=== PATIENT | male | born 1985 | race Caucasian/White ===

== ENCOUNTER 2022-01-28 15:26 | Emergency (ER) | payer OTHER, SELFPAY ==
--- NOTE | ~2022-01-28 | XR_ITS ---
EXAMINATION: XR CHEST CLINICAL INFORMATION: Chest pain COMPARISON: None TECHNIQUE: 2 views of the chest were obtained. FINDINGS: Normal symmetric lung volumes. No parenchymal consolidation. No pleural effusion. No pneumothorax. Cardiomediastinal silhouette and pulmonary vascularity are within normal limits. No acute osseous abnormalities. XR/XR chest 2V IMPRESSION: No acute findings
--- NOTE | 2022-01-28 15:32 | ECG_ITS ---
Test Reason : chest pain Blood Pressure : / mmHG Vent. Rate : 081 BPM Atrial Rate : 081 BPM P-R Int : 130 ms QRS Dur : 078 ms QT Int : 352 ms P-R-T Axes : 021 070 035 degrees QTc Int : 408 ms Normal sinus rhythm Nonspecific ST abnormality Abnormal ECG No previous ECGs available Referred By: Generic ED Physician Electronically Signed By:MED FREEDMAN MD
[2022-01-28 15:33] VITALS: BP 190/106; PULSE 90; RESP 16; TEMP 36.4; O2SAT 99; BMI 30.7
[2022-01-28 16:05] LABS: MANUAL DIFF FLAG NO
[2022-01-28 16:12] VITALS: BP 175/109; PULSE 88; RESP 18; O2SAT 99
[2022-01-28 16:14] LABS: INTERNATIONAL NORM RATIO 1.1 (0.9-1.1); Prothrombin Time 12.2 SEC (10.0-13.1)
[2022-01-28 16:18] LABS: D Dimer High Sensitivity < 150 NG/ML
[2022-01-28 16:20] LABS: Basophils Absolute Auto 0.1 X10*3/uL (0.0-0.2); Basophils Percent Auto 0.7 % (0-2); Eosinophils Absolute Auto 0.2 X10*3/uL (0.0-0.4); Eosinophils Percent Auto 2.1 % (0-4); Hematocrit 45.1 % (42.0-52.0); Hemoglobin 16.4 g/dl (14.0-18.0); Imm Gran Abs Auto 0.05 X10*3/uL (0.00-0.03); Imm Gran Pct Auto 0.6 % (0.0-0.4); Lymphocytes Absolute Auto 2.5 X10*3/uL (1.2-4.9); Lymphocytes Percent Auto 28.7 % (20-40); Mean Corpuscular HGB Conc 36.4 g/dl (31.0-36.0); Mean Corpuscular Hemoglobin 32.5 pg (27.0-33.0); Mean Corpuscular Volume 89.3 fL (80.0-98.0); Mean Platelet Volume 10.5 fL (9.4-12.4); Monocytes Absolute Auto 0.6 X10*3/uL (0.1-1.2); Monocytes Percent Auto 6.5 % (2-11); Neutrophils Absolute Auto 5.3 x10*3/uL (2.0-8.3); Neutrophils Percent Auto 61.4 % (45-73); Platelet Count 201 X10*3/uL (160-400); Red Blood Count 5.05 X10*6/uL (4.60-5.80); Red Cell Distribution Width 12.2 % (11.0-16.0); White Blood Count 8.6 X10*3/uL (4.8-10.8)
[2022-01-28 16:29] LABS: Troponin-I High Sensitivity < 3.5 ng/L (<3.5-35.0)
[2022-01-28 16:30] LABS: Alanine Aminotransferase 82 U/L (0-40); Albumin Level 4.8 g/dL (3.5-5.0); Alkaline Phosphatase 97 U/L (39-117); Anion Gap 16 (12-20); Aspartate Amino Transferase 58 U/L (5-37); Blood Urea Nitrogen 14 mg/dL (9-16); Calcium 10.1 mg/dL (8.4-10.2); Carbon Dioxide 22 mmol/L (22-29); Chloride 107 mmol/L (96-108); Creatinine Clr Calc Pharmacy 112.3; Estimated Glomerular Filt Rate > 60; Glucose Random 106 mg/dL (60-115); Potassium 4.4 mmol/L (3.3-5.1); Sodium 141 mmol/L (135-145); Total Protein 9.1 g/dL (6.5-8.0)
--- NOTE | 2022-01-28 16:34 | ED.CHESTPAIN ---
HPI - Chest Pain General Chief Complaint: Chest Pain Stated Complaint: marlen sent over, concerned for heart attack Time Seen by Provider: 01/28/22 16:12 Source: patient Mode of arrival: ambulatory Limitations: no limitations History of Present Illness HPI narrative: 37-year-old male with a history of hypertension presents with exertional chest pain since Monday with associated pain rating into the left arm and some dyspnea on exertion. Patient reports that his blood pressure is uncontrolled. He followed up with his primary care doctor today and was noted to have elevated blood pressure. Plans were for him to start oral indapimide but d/t complaints of CP he was sent to the ER. Patient denies associated diaphoresis, cough, fever, leg swelling leg pain, Related Data Previous Rx's Medication Instructions Recorded amlodipine 5 mg tablet (Norvasc) 5 mg PO DAILY #30 tabs 01/28/22 nitroglycerin 0.3 mg sublingual 0.3 mg sublingual Q5M PRN chest 01/28/22 tablet pain #30 tabs valsartan 80 1 tab PO DAILY #30 tabs 01/28/22 mg-hydrochlorothiazide 12.5 mg tablet Allergies Allergy/AdvReac Type Severity Reaction Status Date / Time No Known Allergies Allergy Verified 01/28/22 15:36 Review of Systems Review of Systems: Yes all other systems are reviewed and are negative Constitutional: Constitutional: Reports no additional constitutional complaints, Denies body ache(s), Denies chills, Denies fever(s), Denies headache(s) and Denies weakness Eyes: Eyes: Reports no additional eye complaints and Denies change in vision ENT: Reports system reviewed and no additional complaints, except as documented, Denies dizziness, Denies headache(s), Denies nasal congestion, Denies nasal discharge and Denies neck pain Cardiovascular: Cardiovascular: Reports no additional cardiovascular complaints, Reports chest pain, Denies leg edema, Denies dyspnea and Reports dyspnea on exertion Respiratory: Respiratory: Reports no additional respiratory complaints, Denies cough, Denies dyspnea and Reports dyspnea on exertion Gastrointestinal: Gastrointestinal: Reports no additional gastrointestinal complaints, Denies abdominal pain, Denies diarrhea, Denies nausea and Denies vomiting Genitourinary: Genitourinary: Denies urinary incontinence Musculoskeletal: Musculoskeletal: Reports no additional musculoskeletal complaints, Reports back pain, Denies arthralgias, Denies joint swelling, Denies neck pain, Denies numbness, Reports radiating pain into limb and Denies tingling Integumentary/Breasts: Skin/Breast: Reports system reviewed and no additional complaints, except as docu and Denies rash Neurologic: Reports system reviewed and no additional complaints, except as documented, Denies Abnormal speech present, Denies dizziness, Denies headache(s), Denies numbness, Denies tingling and Denies weakness PMFSH Past Medical History Attestation statement: The following information was validated with the patient. Source: old records reviewed and nursing notes reviewed Social History Social History Advance Directives: No Advance Directives Information Provided: Yes Physical Exam Vital Signs: Vital Signs: Last Vital Signs Temp 97.6 F 01/28/22 19:43 Pulse 69 01/28/22 20:18 Resp 18 01/28/22 20:18 BP 153/98 H 01/28/22 20:18 Pulse Ox 98 01/28/22 20:18 O2 Del Method 01/28/22 20:18 BMI result Body Mass Index 30.7 Const: General: cooperative, healthy appearing, comfortable and no acute distress Orientation/consciousness: patient oriented x3 Limitations: no limitations HEENT: Head: Yes normal to inspection Ears: hearing grossly normal bilaterally General nose exam: Normal external nose present Face and sinus: Yes normal facial exam Mouth: Normal oral and palatal mucosa present Throat: Yes posterior oropharynx normal Eyes: General: appearance normal, both eyes and all related structures Pupils: Equal, round and reactive pupils present Neck: Neck: Yes normal visual inspection Chest: Chest palpation & inspection: normal inspection of the chest Resp: Effort & Inspection: normal respiratory effort Auscultation: clear to auscultation bilaterally Cardio: Rate: regular rate Rhythm: regular rhythm Peripheral pulses: Peripheral pulses 2+ throughout GI: Inspection: Yes normal to inspection Palpation (GI): Soft to palpation and nontender Auscultation: normal bowel sounds Back/Spine/Pelvis: Thoracic/Lumbar Spine: thoracic and lumbar spine normal to inspection Skin: General skin exam: no rashes or lesions noted Neuro: General: patient oriented x3, no focal motor deficits and normal sensation to monofilament Cranial nerves: Yes Equal, round and reactive pupils present Cognition (Neuro): normal cognition Speech: No Abnormal speech present Gait exam (Neuro): Normal gait present Motor exam (neuro): 5/5 motor strength present throughout Extrem: General: Yes normal to inspection, Yes no pedal edema and Yes no calf tenderness Course Course Course Narrative: EKG shows T-wave inversions in leads 2 3 and AVF. Troponin is flat. No previous EKGs available for comparison determine if these are new or old. All other labs unremarkable. Chest x-ray shows no acute finding. COVID screen is negative. Patient reports all symptoms or with exertion and has none at rest. Initial blood pressure 190/110. Patient received his normal home medications of losartan and metoprolol with blood pressure now 170/100. Will discussed patient with Cardiology Reevaluation(s) Reevaluation #1: Spoke with Cardiology. Patient should have better management of blood pressure outpatient and they will follow up for stress test outpatient. Patient has orders from his primary care to start Lozol 1.25 mg and they have plans to follow-up with him in 5 days for blood pressure recheck and plan to increase his medications if needed. Cardiology does not think this will be useful. They recommended adding Norvasc 5 mg daily and valsartan/hydrochlorothiazide 80 in 12.5 mg. Also recommended patient going home with aspirin and nitroglycerin. He also has a renal artery duplex ultrasound ordered for outpatient to rule out renal artery stenosis. Therefore I will discharge patient home with Cardiology follow-up. Will recommend non exertional activity including sexual intercourse, nitro as needed for pain, 81mg aspirin daily. Reviewed worrisome signs and symptoms with the patient when to return to the emergency room (pain at rest, more severe pain) Comfortable plan for discharge home. Medications Administered Discontinued Medications Generic Name Dose Route Start Last Admin Trade Name Clarice PRN Reason Stop Dose Admin Amlodipine Besylate 5 mg 01/28/22 18:14 01/28/22 20:14 Amlodipine Besylate 5 Mg Tablet PO 01/28/22 18:15 5 mg ONCE ONE Administration Protocol Aspirin 81 mg 01/28/22 18:14 01/28/22 20:15 Aspirin 81 Mg Tab.Chew PO 01/28/22 18:15 81 mg ONCE ONE Administration Hydrochlorothiazide 12.5 mg 01/28/22 18:14 01/28/22 20:15 Hydrochlorothiazide 12.5 Mg Tablet PO 01/28/22 18:15 12.5 mg ONCE ONE Administration Protocol Losartan Potassium 100 mg 01/28/22 16:32 01/28/22 16:38 Losartan Potassium 50 Mg Tablet PO 01/28/22 16:33 100 mg ONCE ONE Administration Protocol Metoprolol Succinate 100 mg 01/28/22 16:32 01/28/22 16:38 Metoprolol Succinate Er 100 Mg Tab.Er.24h PO 01/28/22 16:33 100 mg ONCE ONE Administration Protocol Valsartan 80 mg 01/28/22 18:14 01/28/22 20:15 Valsartan 80 Mg Tablet PO 01/28/22 18:15 80 mg ONCE ONE Administration Protocol MDM - Chest Pain MDM Narrative Medical decision making narrative: 37-year-old male here with exertional chest pain since Monday and uncontrolled hypertension. Considered ACS, hypertensive urgency, PE, dissection Will need labs, EKG, chest x-ray, COVID screen. Patient has not taking his home blood pressure medications. Will medicate with these. Patient may need admission 1630-of note patient with T-wave inversions leads 2, 3, AVF. Her patient this is unchanged from his previous EKG. Not available for comparison as it was at [facility]. Will try to obtain records Differential Diagnosis Differential diagnosis: Less likely PE with negative D-dimer, no clinical findings concerning for DVT or PE, no hypoxia, no tachypnea or tachycardia less likely dissection with gradual onset of symptoms which are intermittent (not at rest) and reported as mild Medical Records Data Attestation: I reviewed the patient's medical records. Lab Data Attestation: I reviewed the patient's lab results. Result diagrams: 01/28/22 15:56 01/28/22 15:57 Labs: Lab Results 01/28/22 01/28/22 01/28/22 Range/Units 15:56 15:56 15:56 WBC 8.6 (4.8-10.8) X10*3/uL RBC 5.05 (4.60-5.80) X10*6/uL Hgb 16.4 (14.0-18.0) g/dl Hct 45.1 (42.0-52.0) % MCV 89.3 (80.0-98.0) fL MCH 32.5 (27.0-33.0) pg MCHC 36.4 H (31.0-36.0) g/dl RDW 12.2 (11.0-16.0) % Plt Count 201 (160-400) X10*3/uL MPV 10.5 (9.4-12.4) fL Immature Gran % (Auto) 0.6 H (0.0-0.4) % Neut % (Auto) 61.4 (45-73) % Lymph % (Auto) 28.7 (20-40) % Carroll % (Auto) 6.5 (2-11) % Eos % (Auto) 2.1 (0-4) % Baso % (Auto) 0.7 (0-2) % Lymph # (Auto) 2.5 (1.2-4.9) X10*3/uL Carroll # (Auto) 0.6 (0.1-1.2) X10*3/uL Eos # (Auto) 0.2 (0.0-0.4) X10*3/uL Baso # (Auto) 0.1 (0.0-0.2) X10*3/uL Abs Immat Gran (auto) 0.05 H (0.00-0.03) X10*3/uL Absolute Neuts (auto) 5.3 (2.0-8.3) x10*3/uL Absolute Nucleated RBC 0.000 (0.0-0.012) X10*3/uL Nucleated RBC % (auto) 0.0 (0.0-0.2) /100WBC PT 12.2 (10.0-13.1) SEC INR 1.1 (0.9-1.1) D-Dimer High Sensitivty < 150 NG/ML Sodium (135-145) mmol/L Potassium (3.3-5.1) mmol/L Chloride (96-108) mmol/L Carbon Dioxide (22-29) mmol/L Anion Gap (12-20) BUN (9-16) mg/dL Creatinine (0.5-1.4) mg/dL Estim Creat Clear Calc Estimated GFR Random Glucose (60-115) mg/dL Calcium (8.4-10.2) mg/dL Magnesium (1.6-2.6) mg/dL Total Bilirubin (0.0-1.0) mg/dL AST (5-37) U/L ALT (0-40) U/L Alkaline Phosphatase (39-117) U/L Troponin I High Sens < 3.5 (<3.5-35.0) ng/L Total Protein (6.5-8.0) g/dL Albumin (3.5-5.0) g/dL COVID-19 (JUANCARLOS) (Negative) COVID-19 Clin Com 01/28/22 01/28/22 Range/Units 15:57 16:45 WBC (4.8-10.8) X10*3/uL RBC (4.60-5.80) X10*6/uL Hgb (14.0-18.0) g/dl Hct (42.0-52.0) % MCV (80.0-98.0) fL MCH (27.0-33.0) pg MCHC (31.0-36.0) g/dl RDW (11.0-16.0) % Plt Count (160-400) X10*3/uL MPV (9.4-12.4) fL Immature Gran % (Auto) (0.0-0.4) % Neut % (Auto) (45-73) % Lymph % (Auto) (20-40) % Carroll % (Auto) (2-11) % Eos % (Auto) (0-4) % Baso % (Auto) (0-2) % Lymph # (Auto) (1.2-4.9) X10*3/uL Carroll # (Auto) (0.1-1.2) X10*3/uL Eos # (Auto) (0.0-0.4) X10*3/uL Baso # (Auto) (0.0-0.2) X10*3/uL Abs Immat Gran (auto) (0.00-0.03) X10*3/uL Absolute Neuts (auto) (2.0-8.3) x10*3/uL Absolute Nucleated RBC (0.0-0.012) X10*3/uL Nucleated RBC % (auto) (0.0-0.2) /100WBC PT (10.0-13.1) SEC INR (0.9-1.1) D-Dimer High Sensitivty NG/ML Sodium 141 (135-145) mmol/L Potassium 4.4 (3.3-5.1) mmol/L Chloride 107 (96-108) mmol/L Carbon Dioxide 22 (22-29) mmol/L Anion Gap 16 (12-20) BUN 14 (9-16) mg/dL Creatinine 1.01 (0.5-1.4) mg/dL Estim Creat Clear Calc 112.3 Estimated GFR > 60 Random Glucose 106 (60-115) mg/dL Calcium 10.1 (8.4-10.2) mg/dL Magnesium 2.0 (1.6-2.6) mg/dL Total Bilirubin 1.0 (0.0-1.0) mg/dL AST 58 H (5-37) U/L ALT 82 H (0-40) U/L Alkaline Phosphatase 97 (39-117) U/L Troponin I High Sens (<3.5-35.0) ng/L Total Protein 9.1 H (6.5-8.0) g/dL Albumin 4.8 (3.5-5.0) g/dL COVID-19 (JUANCARLOS) Negative (Negative) COVID-19 Clin Com See Note Imaging Data Chest x-ray: Attestation: I personally reviewed and interpreted this imaging study as follows: Radiologist's impression: [place] [id number] XRay Report Signed Patient: Sebas Miller MR#: [id number] : 1985 Acct:[id number] Age/Sex: 37 / M ADM Date: 01/28/22 Loc: .ED Attending Dr: Ordering Physician: Delmy Tello NP Date of Service: 01/28/22 Procedure(s): XR chest 2V Accession Number(s): [id number] cc: Delmy Tello NP~ EXAMINATION: XR CHEST CLINICAL INFORMATION: Chest pain COMPARISON: None TECHNIQUE: 2 views of the chest were obtained. FINDINGS: Normal symmetric lung volumes. No parenchymal consolidation. No pleural effusion. No pneumothorax.? Cardiomediastinal silhouette and pulmonary vascularity are within normal limits. No acute osseous abnormalities. XR/XR chest 2V IMPRESSION: No acute findings ECG Data ECG #1: Attestation: I personally reviewed and interpreted this ECG as follows: ECG interpretation date: 01/28/22 ECG interpretation time: 15:35 Interpretation: Normal sinus rhythm with a rate 81, normal NE, normal QRS, normal QT, ST depressions leads 2, 3, AVF Critical Care Time Critical Care Time Critical Care Time: Yes Total Critical Care Time: 30 Attestation: Review of records from [facility], discussion with Cardiology Discharge Plan Discharge Clinical Impression: Chest pain Patient Disposition: Home, Self-Care Instructions: Chest Pain (DC) Additional Instructions: Do not take the Lozol which your doctor prescribed. start taking norvasc, valsartan/hctz, aspirin 81 mg daily Monitor your blood pressures daily and following back up with primary for medication adjustment. They have also ordered a renal artery ultrasound outpatient I spoke to Cardiology. You can call them for an appointment to schedule an outpatient stress test No exertional activity including sexual intercourse. If you do have exertional chest pain please take nitroglycerin. Keep nitroglycerin with you at all times Return here for worsening symptoms as discussed. Prescriptions: New amlodipine [Norvasc] 5 mg tablet 5 mg PO DAILY Qty: 30 0RF valsartan-hydrochlorothiazide 80-12.5 mg tablet 1 tab PO DAILY Qty: 30 0RF nitroglycerin 0.3 mg tablet, sublingual 0.3 mg sublingual Q5M PRN (Reason: chest pain) Qty: 30 0RF Rx Instructions: do not exceed 3 doses per episode Referrals: Tereso Ren MD [Physician] - Interventions: ED Discharge Assessment Last Done: 01/28/22 20:24 Discharge Date/Time: 01/28/22 20:25
[2022-01-28] MEDS: Metoprolol Succinate ER 100 MG TAB.ER.24H PO (16:38)
[2022-01-28] MEDS: Losartan Potassium 50 MG TABLET 100 MG PO (16:38)
[2022-01-28 17:28] LABS: COVID-19 Test Negative (Negative); IDNOW Serial# 16C4AD1C
[2022-01-28 17:38] VITALS: BP 175/106; PULSE 75
[2022-01-28 19:43] VITALS: BP 147/86; PULSE 78; RESP 15; TEMP 36.4; O2SAT 96
[2022-01-28] MEDS: amLODIPine Besylate 5 MG TABLET PO (20:14)
[2022-01-28] MEDS: hydroCHLOROthiazide 12.5 MG TABLET PO (20:15)
[2022-01-28] MEDS: Aspirin 81 MG TAB.CHEW PO (20:15)
[2022-01-28] MEDS: Valsartan 80 MG TABLET PO (20:15)
[2022-01-28 20:18] VITALS: BP 153/98; PULSE 69; RESP 18; O2SAT 98
[2022-01-28 20:23] VITALS: PULSE 82
== END 2022-01-28 20:25 | disposition home or self-care (01) ==
PROVIDERS: Nurse Practitioner Family; Emergency Provider Emergency Medicine; PCP Internal Medicine
DX: R07.89 Other chest pain (principal); Z79.899 Other long term (current) drug therapy; Z20.822 Contact with and (suspected) exposure to COVID-19
CPT/HCPCS: 36415; 71046; 80053; 83735; 84484; 85025; 85379; 85610; 87635; 93005; 99283; 99284

== ENCOUNTER → 2022-02-01 10:49 | Outpatient (REF) | payer OTHER, SELFPAY ==
--- NOTE | 2022-02-01 11:01 | CA_ITS ---
Acquisition Time: 2022-02-01 11:41:43 Total Exercise Time: 00:08:18 Test Indications: CP Medications: SEE CHART Protocol: SHELDON Max HR: 166 BPM 91% of Pred: 182 BPM Max BP: 170/092 mmHG Max Work Load: 10.1 METS Exercise stres test with exercise 8 min 18 sec of Sheldon protocol, achieving 90% MPHR, with leg fatigue and back discomfort with need to stop, without anginal symptoms, without arrythmia, with normotensive response to exercise, without EKG changes of ischemia during exercise, with downsloping ST segments inferior, V4-V6 which slowly improved throughout his prolonged recovery. Echo images obtained at rest and immediately post peak exercise, Definity contrast used. At 8 min recovery he reported lightheadedness, BP 100/60. Assisted to supine positon and encouraged PO fluids. BP remained low for him at 102/70. He was then given 150 cc IV normal saline with improvement in BP to 114/82. Pt felt back to normal with no concerning symptoms. Test reviewed with Dr Owen Referred By: Tereso Ren Overread By: BO SEGOVIA
== END ==
LOC: HO.CARD 10:49
PROVIDERS: PCP Internal Medicine; Visit Provider Internal Medicine Cardiovascular Disease
DX: R07.9 Chest pain, unspecified (principal)
CPT/HCPCS: 93350; Q9957

== ENCOUNTER → 2022-02-22 13:51 | Outpatient (BNVA) | payer OTHER, SELFPAY | PROVIDERS: PCP Internal Medicine; Referring Provider Internal Medicine; Visit Provider Internal Medicine Cardiovascular Disease | DX: R07.9 Chest pain, unspecified (principal); I10 Essential (primary) hypertension | CPT/HCPCS: 93005 ==

== ENCOUNTER → 2022-02-28 15:56 | Outpatient (REF) | payer OTHER, SELFPAY ==
--- NOTE | 2022-02-28 15:59 | CA_ITS ---
Transthoracic Echocardiogram Patient (Last, First, Middle): Sebas Miller R Gender: Male Date of : 1985 Age: 37 Procedure Date: 02/28/2022 Procedure Type: Transthoracic Echocardiogram Location: OP Height: 175.26 cm Weight: 88.91 kg BSA: 2.05 m2 Heart Rate: bpm BP: 121 / 81 mmHg Clinical Dietitian: DRISS Referring MD: Tereso Ren MD Symptoms: I10 - Essential (primary) hypertension Study Quality: Adequate Conclusions: - The left ventricular systolic function is normal. The calculated ejection fraction is 62% by biplane method. - No obvious valvular pathology seen on this study. Findings Left Ventricle Normal left ventricular cavity size. There is normal left ventricular wall thickness. The left ventricular systolic function is normal. The calculated ejection fraction is 62% by biplane method. There is no evidence of regional wall motion abnormalities. Diastolic function is normal for age. LV peak GLS -17.8%. Right Ventricle Normal right ventricular cavity size and systolic function. Atria Both atria are normal in size. Aortic Valve There is a normal trileaflet aortic valve. There is no aortic valve stenosis. There is no aortic valve regurgitation. Mitral Valve The mitral valve appears normal. There is trace mitral valve regurgitation. There is no mitral valve stenosis. Pulmonic Valve The pulmonic valve is likely normal. Tricuspid Valve Normal tricuspid valve structure. There is trace tricuspid valve regurgitation. There is no evidence of pulmonary hypertension. Great Vessels The asc aorta is normal in size. Venous The inferior vena cava is normal in size and collapses less than 50% with inspiration. Pericardium/Pleural There is no evidence of pericardial effusion. Prior Study Comparison No prior study available for comparison. Recommendations, Care & Conclusions No obvious valvular pathology seen on this study. Measurements 2D Linear Measurements IVSd: 1.01 0.6-0.9/0.6-1.0 cm LVIDd: 4.39 3.9-5.3/4.2-5.9 cm LVIDd Index: 2.14 2.4-3.2/2.2-3.1 cm/m2 LVIDs: 2.31 2.0-3.6 cm LVPWd: 0.84 0.7-1.1 cm LA Diam: 2.40 2.7-3.8/3.0-4.0 cm LAIDs Index: 1.17 1.5-2.3 cm/m2 LV Mass: 164.46 67-162/88-224 g LV Mass Index: 80.22 43-95/49-115 g/m2 LVOT Diam: 2.00 3.0+(-)1.3 cm 2D Systolic Function EF 4C: 62.70 >55% EF 2C: 62.60 >55% EF BiP: 61.80 >55% Mitral Valve MV Pk E: 0.88 MV PK A: 0.59 MV Decel Time: 243.00 E/A: 1.50 E'Lateral: 16.30 E'Medial: 8.92 E/E' Med: 9.80 E/E' Lat: 5.40 PHT: 71.00 MVA PHT: 3.10 Decel Duchesne: 3.62 Aortic Valve AoV Pk Jose De Jesus: 1.40 AoV Mn Jose De Jesus: 0.95 AoV VTI: 0.27 AoV Pk Grad: 8.00 Aov Mn Grad: 4.00 KELVIN Cont.VTI: 2.79 LVOT LVOT Pk Jose De Jesus: 1.22 LVOT Mn Jose De Jesus: 0.78 LVOT VTI: 0.24 LVOT Pk Grad: 6.00 LVOT Mn Grad: 3.00 LVOT Diam: 2.00 LVOT Area: 3.14 Diastolic Function MV Pk E: 0.88 MV Pk A: 0.59 E/A: 1.50 E'Medial: 8.92 E/E' Med: 9.80 E' Laterial: 16.30 E/E' Lat: 5.40 Right Ventricle TAPSE (mm): 20.80 TVS' Jose De Jesus: 13.60 Tricuspid Valve TR Pk Jose De Jesus: 2.14 TR Pk Grad: 18.00 RA Press: 8.00 RVSP: 26.00 Great Vessels Aorta Sinus of Valsalva: 3.38 2.0-3.[address] Ridge: 2.61 1.7-3.4 cm Ao Asc: 3.20 2.1-3.4 cm Updated in Other Vendor System with Status of Final Tavares Owen MD electronically signed on 03/02/2022 8:50:10 AM with status of Final
== END ==
LOC: HO.CARD 15:56
PROVIDERS: Visit Provider Internal Medicine Cardiovascular Disease
DX: I10 Essential (primary) hypertension (principal)
CPT/HCPCS: 93306; 93356

== ENCOUNTER → 2022-03-09 15:04 | Outpatient (REF) | payer OTHER, SELFPAY | LOC: HO.SL 15:04 | PROVIDERS: Visit Provider Internal Medicine Cardiovascular Disease | DX: G47.33 Obstructive sleep apnea (adult) (pediatric) (principal); G47.10 Hypersomnia, unspecified; I10 Essential (primary) hypertension | CPT/HCPCS: 95806 ==

== ENCOUNTER 2022-03-10 08:43 | Outpatient (REF) | payer OTHER, SELFPAY ==
[2022-03-10 09:15] LABS: Cholesterol 231 mg/dL; HDL Cholesterol 24 mg/dL; Triglycerides 1015 mg/dL
[2022-03-10 09:35] LABS: Cortisol Random 9.9 ug/dL
[2022-03-12 13:54] LABS: CRP High Sensitivity 2.5 mg/L
[2022-03-14 10:09] LABS: Renin 1.93 ng/mL/h (0.25-5.82)
[2022-03-15 14:09] LABS: Metanephrine, Free 53 pg/mL (<=57); Normetanephrines, Free 144 pg/mL (<=148); Total Metanephrine, Free 197 pg/mL (<=205)
== END 2022-03-10 08:44 | disposition home or self-care (01) ==
LOC: HO.LAB 08:43
PROVIDERS: PCP Internal Medicine; Visit Provider Internal Medicine Cardiovascular Disease
DX: I25.10 Atherosclerotic heart disease of native coronary artery without angina pectoris (principal); E78.5 Hyperlipidemia, unspecified; I10 Essential (primary) hypertension
CPT/HCPCS: 36415; 80061; 82088; 82533; 83835; 84244; 86141

== ENCOUNTER → 2022-04-11 13:56 | Outpatient (BNVA) | payer OTHER, SELFPAY | PROVIDERS: PCP Internal Medicine; Referring Provider Internal Medicine; Visit Provider Internal Medicine Cardiovascular Disease | DX: Z13.89 Encounter for screening for other disorder (principal) ==

== ENCOUNTER → 2022-04-15 10:54 | Outpatient (BNVA) | payer OTHER, SELFPAY | PROVIDERS: PCP Internal Medicine; Visit Provider Nurse Practitioner Family | DX: Z13.89 Encounter for screening for other disorder (principal) ==

== ENCOUNTER → 2022-08-15 11:21 | Outpatient (BNVA) | payer OTHER, SELFPAY | PROVIDERS: PCP Internal Medicine; Visit Provider Nurse Practitioner Family ==

== ENCOUNTER 2022-10-11 14:26 | Outpatient (AMB) | payer OTHER, SELFPAY ==
--- NOTE | 2022-10-11 14:27 | MHC.OFFVIS ---
Intake Vital Signs 10/11/22 14:28 Height 5 ft 9 in Weight 206 lb 5.643 oz BMI 30.5 BP 110/82 Blood Pressure Location Lt brachial Position Sitting Pulse 72 Pulse Source Monitor Intake Visit Reasons: 6M follow up Intake Note: 6 month follow up with EKG after recent coronary CTA. 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 He said he feels extremely well since using CPAP. He has also not having any exertional chest tightness or shortness of breath. Blood pressure is much better controlled. His triglycerides have only improved moderately. He went down from 1000 mg/dL to about in the 700 range. He complains of symptoms of fatigue and tiredness with metoprolol therapy. Denies any lightheadedness, syncope. [facility] Surgical History (Updated 10/11/22 @ 14:31 by ALEXANDRA Roman) H/O removal of cyst Family History Father HTN (hypertension) Mother HTN (hypertension) Maternal Grandfather CAD (coronary artery disease) Maternal Grandmother CAD (coronary artery disease) Social History Alcohol intake: current Alcohol intake frequency: holidays/special occasions only Patient Tobacco Use Status: Never used Tobacco Review of Systems Const Denies weakness ENT Denies dizziness Card Denies chest pain, Denies chest pain with activity, Denies syncope, Denies rapid heart rate, Denies pedal edema, Denies edema, Denies leg edema, Denies lightheadedness, Denies palpitations, Denies dyspnea, Denies dyspnea on exertion and Denies orthopnea Resp Denies cough, Denies dyspnea and Denies dyspnea on exertion GI Denies hematochezia and Denies change in stool character Musc Denies abnormal gait, Denies muscle cramps, Denies muscle weakness, Denies numbness, Denies radiating pain into limb and Denies tingling Neuro Denies abnormal gait, Denies dizziness, Denies syncope, Denies numbness, Denies tingling and Denies weakness Endo Denies palpitations Physical Exam Vital Signs: Last Vital Signs Pulse 72 10/11/22 14:28 BP 110/82 10/11/22 14:28 BMI result Body Mass Index 30.5 Const General: cooperative, comfortable, no acute distress, alert, awake and well groomed Nutritional Appearance: overweight Orientation/consciousness: patient oriented x3 Limitations: no limitations Neck Neck: Yes trachea midline, Yes supple and Yes no JVD Resp Effort & Inspection: normal respiratory effort Auscultation: clear to auscultation bilaterally Cardio Jugular venous distension: no JVD Palpation: normal PMI Rate: regular rate Rhythm: regular rhythm Heart sounds: S1 normal heart sound present, S2 normal heart sound present, no click, no gallops, no murmurs and no rubs Skin General skin exam: no rashes or lesions noted Neuro General: patient oriented x3 and no focal motor deficits Office Procedures EKG Details: EKG shows normal sinus rhythm nonspecific ST T wave change [id number], Complete Assessment & Plan Assessment & Plan (1) Uncontrolled hypertension: Code(s): I10 - Essential (primary) hypertension Plan: Uncontrolled hypertension the past with much better control since initiation of CPAP therapy. He is complaining of some chronotropic incompetence side effect of metoprolol. Reduce to 25 mg daily. Advised to monitor blood pressure at home maintain a log. Continue current therapy advised importance of good blood pressure control was discussed. He understands agrees. Continue CPAP therapy. Advised to participate in regular physical activity and weight loss program which she is currently doing. (2) Hyperlipidemia: Code(s): E78.5 - Hyperlipidemia, unspecified Plan: Marked hypertriglyceridemia with only modest response to Vascepa therapy. Will switch him to Lovaza 2 g b.i.d. follow-up lipid panel in 3 months time. If he does not have adequate response to Lovaza will add fibrate therapy. Management of diet control was discussed. Management of sugars were discussed. Will follow up in the clinic in 1 year's time, sooner p.r.n.. Thank you for allowing me to partake in his care Medications: New metoprolol succinate ER (Toprol XL) 25 mg PO DAILY 30 tabs 2RF omega-3 acid ethyl esters (Lovaza) 2 caps PO BID 120 caps 4RF Refilled icosapent ethyl (Vascepa) 2 grams (2 x 1 gram) PO BID 60 caps 0RF Coding Level of Care Code Est Pt Level 4 (48227) Diagnoses Uncontrolled hypertension I10 Hyperlipidemia E78.5 CPT Codes EKG - CPT: 51404-[id number], Complete ([id number])
[2022-10-11 14:28] VITALS: BP 110/82; PULSE 72; BMI 30.5
== END 2022-10-11 14:54 | disposition home or self-care (01) ==
PROVIDERS: Visit Provider Internal Medicine Cardiovascular Disease
DX: I10 Essential (primary) hypertension (principal); E78.5 Hyperlipidemia, unspecified
CPT/HCPCS: 93010; 99214

== ENCOUNTER → 2022-10-11 14:26 | Outpatient (BNVA) | payer OTHER, SELFPAY | PROVIDERS: Visit Provider Internal Medicine Cardiovascular Disease | DX: I10 Essential (primary) hypertension (principal); E78.5 Hyperlipidemia, unspecified | CPT/HCPCS: 93005 ==

== ENCOUNTER 2023-01-02 08:20 | Outpatient (REF) | payer OTHER, SELFPAY ==
[2023-01-02 09:20] LABS: Cholesterol 186 mg/dL (<200); HDL Cholesterol 29 mg/dL (>40); LDL Cholesterol Calculated 98 mg/dL (<100); Triglycerides 297 mg/dL (<150)
== END 2023-01-02 08:21 | disposition home or self-care (01) ==
LOC: HO.LAB 08:20
PROVIDERS: Visit Provider Internal Medicine Cardiovascular Disease
DX: I25.10 Atherosclerotic heart disease of native coronary artery without angina pectoris (principal); E78.5 Hyperlipidemia, unspecified
CPT/HCPCS: 36415; 80061

== ENCOUNTER 2023-01-20 15:06 | Emergency (ER) | payer OTHER, SELFPAY ==
--- NOTE | ~2023-01-20 | XR_ITS ---
EXAMINATION: XR CHEST CLINICAL INFORMATION: Chest pain COMPARISON: 01/28/2022 TECHNIQUE: 2 views of the chest were obtained. FINDINGS: No significant abnormality is noted involving the heart, lungs, mediastinum, bony thorax or soft tissues. XR/XR chest 2V IMPRESSION: Unremarkable examination with no interval change.
[2023-01-20 15:14] VITALS: BP 153/92; PULSE 90; RESP 16; TEMP 36.8; O2SAT 99; BMI 30.3
--- NOTE | 2023-01-20 15:17 | ECG_ITS ---
Test Reason : CHEST PAIN Blood Pressure : / mmHG Vent. Rate : 080 BPM Atrial Rate : 080 BPM P-R Int : 140 ms QRS Dur : 080 ms QT Int : 352 ms P-R-T Axes : 033 069 037 degrees QTc Int : 405 ms Normal sinus rhythm Normal ECG When compared with ECG of 28-JAN-2022 15:35, No significant change was found Referred By: Romelia Jacob Electronically Signed By:MED FREEDMAN MD
--- NOTE | 2023-01-20 15:18 | ED.CHESTPAIN ---
HPI - Chest Pain General Chief Complaint: Chest Pain Stated Complaint: High blood pressure Time Seen by Provider: 01/20/23 16:38 Source: patient Mode of arrival: ambulatory Limitations: no limitations History of Present Illness HPI narrative: This is a 37-year-old male history of hyperlipidemia, uncontrolled hypertension, JEFF presenting to the emergency department concerned that his blood pressure has been higher than usual, not feeling well and he is concerned because he has been having some chest discomfort, he describes as a dull discomfort localized to the left side of his chest, he is also reporting associated lightheadedness, nausea for the past 2 days. Denies sick contacts. Denies shortness of breath, fevers, chills, vomiting, abdominal pain, headache, vision changes Related Data Previous Rx's Medication Instructions Recorded amlodipine 5 mg tablet (Norvasc) 5 mg PO DAILY #30 tabs 02/23/22 hydrochlorothiazide 25 mg tablet 25 mg PO DAILY #90 tabs 06/20/22 valsartan 80 mg tablet 80 mg PO BID 90 days #180 tabs 08/04/22 omega-3 acid ethyl esters 1 gram 2 cap PO BID #120 caps 10/11/22 capsule (Lovaza) metoprolol succinate 25 mg 25 mg PO DAILY #30 tabs 01/10/23 tablet,extended release 24 hr rosuvastatin 20 mg tablet 20 mg PO DAILY #30 tabs 01/12/23 Allergies Allergy/AdvReac Type Severity Reaction Status Date / Time No Known Allergies Allergy Verified 01/20/23 15:14 Review of Systems Review of Systems: Constitutional : No Weight loss, No Fever, No Chills, + Fatigue, + Malaise ENT/Mouth : No sore throat, No Rhinorrhea Eyes: No Eye Pain, No Swelling, No Redness Cardiovascular : + Chest Pain, No SOB, No Dyspnea on Exertion, No Orthopnea, No Edema, No Palpitations Respiratory : No Cough, No Sputum, No Wheezing Gastrointestinal : + Nausea, No Vomiting, No Diarrhea, No Constipation, No abdominal Pain, No Hematochezia, No Melena Genitourinary : No Dysuria, No Urinary Frequency, No Hematuria, Musculoskeletal : No joint pain, No Myalgias, No Joint Swelling Skin : No Skin Lesions, No rash Neuro : No Weakness, No Numbness, + Dizziness, No Headache Psych : No Anxiety/Panic, No Depression All other systems reviewed and are negative Yes all other systems are reviewed and are negative REPLACED BY [facility] Past Medical History Attestation statement: The following information was validated with the patient. Source: old records reviewed and nursing notes reviewed Surgical History H/O removal of cyst Family History Family History Father HTN (hypertension) Mother HTN (hypertension) Maternal Grandfather CAD (coronary artery disease) Maternal Grandmother CAD (coronary artery disease) Social History Social History Alcohol intake: current Alcohol intake frequency: a few times a month Patient Tobacco Use Status: Never used Tobacco Smoked in Last 30 Days: No Use of substances other than those prescribed or required for medical reasons: No Advance Directives: No Advance Directives Information Provided: Yes Physical Exam Vital Signs: Vital Signs: Last Vital Signs Temp 99.2 F 01/20/23 17:14 Pulse 68 01/20/23 19:48 Resp 16 01/20/23 19:48 BP 117/73 01/20/23 19:48 Pulse Ox 98 01/20/23 19:48 O2 Del Method Room Air 01/20/23 19:48 BMI result Body Mass Index 30.3 vss patient is slightly hypertensive. Appearance: Alert.? Oriented X3.? No acute distress.? Head: Normocephalic, atraumatic, no step-offs or deformities Eyes: Pupils equal, round and reactive to light.? CVS: Normal heart rate and rhythm.? Pulses normal.? Respiratory: No respiratory distress.? Breath sounds normal.? Abdomen: Soft and nontender.? Skin: Skin warm and dry.? Normal skin color.? Normal skin turgor.? Extremities: No lower extremity edema.? No calf ttp. 5/5 strength to bilateral upper and lower extremities Back: No midline tenderness, no C-spine tenderness, full range of motion, no CVA tenderness bilaterally Neuro: Oriented X 3.? No motor deficit.? No sensory deficit. CN 2-12 intact . Normal [id number], qxor-[id number], steady tandem gait normal coordination. NIH stroke scale 0 Course Course Course Narrative: This is an RME: Additional HPI, ROS, PE not included below will be deferred to primary provider. patient is a 37-year-old male who presents emergency department for evaluation of not feeling good reporting feeling cold, face feels hot, dull aching sensation to the left chest, lightheadedness, nausea. Symptom onset 2 days ago and has been constant, progressively worsening this morning. Plan: EKG, labs, CXR, viral testing Reevaluation(s) Reevaluation #1: CBC within normal limits. Chemistry with no acute electrolyte abnormalities requiring intervention. Troponin negative x2, EKG nonischemic. Lipase normal. UA clean Blood pressures have been within normal range here in the department. Patient does not have pain at this time. Will discharge home with outpatient provider follow-up and cardiology follow-up. Educated patient on diagnosis and treatment plan, answered all question, patient verbalizes understanding. At this time patient will be discharged home, advised to return with new or worsening symptoms. Educated on worrisome signs and symptoms and when to return. At this time I feel comfortable discharge home. Time: 19:52 Medications Administered Discontinued Medications Generic Name Dose Route Start Last Admin Trade Name Freq PRN Reason Stop Dose Admin Ketorolac Tromethamine 15 mg 01/20/23 18:53 01/20/23 19:22 Ketorolac Tromethamine 15 Mg/Ml Vial IM 01/20/23 18:54 Not Given ONCE ONE Medical Decision Making Medical Decision Making [facility] Narrative: 1644 37-year-old male presents not feeling well also reporting left-sided chest discomfort, nausea and lightheadedness for the past 2 days. Concerned about his blood pressure which is high according to patient Physical exam slightly hypertensive. Otherwise unremarkable. Neuro nonfocal. Cerebellar intact. NIH stroke scale 0 Concerns for likely viral illness. Unlikely ACS, dissection, pulmonary embolism. Lightheadedness/dizziness likely secondary to viral illness, dehydration or orthostatic hypotension I do not suspect stroke, posterior stroke, intracranial hemorrhage. Will rule out dysrhythmia. Plan labs, imaging, viral test Differential Diagnosis Differential Diagnoses: The differential diagnosis associated with the presentation includes Concerns for likely viral illness. Unlikely ACS, dissection, pulmonary embolism. Lightheadedness/dizziness likely secondary to viral illness, dehydration or orthostatic hypotension I do not suspect stroke, posterior stroke, intracranial hemorrhage. Will rule out dysrhythmia. Admission/Observation Consideration of admission/observation: Escalation of care including admission/observation considered Lab Data MDM Lab Attestation statement: I reviewed the patient's lab results. 01/20/23 15:33 01/20/23 15:33 Labs: Lab Results 01/20/23 01/20/23 01/20/23 Range/Units 15:32 15:33 17:41 WBC 6.8 (4.8-10.8) X10*3/uL RBC 4.92 (4.60-5.80) X10*6/uL Hgb 15.7 (14.0-18.0) g/dl Hct 44.2 (42.0-52.0) % MCV 89.8 (80.0-98.0) fL MCH 31.9 (27.0-33.0) pg MCHC 35.5 (31.0-36.0) g/dl RDW 12.4 (11.0-16.0) % Plt Count 151 L (160-400) X10*3/uL MPV 10.0 (9.4-12.4) fL Immature Gran % (Auto) 0.3 (0.0-0.4) % Neut % (Auto) 62.0 (45-73) % Lymph % (Auto) 26.6 (20-40) % Edwards % (Auto) 7.9 (2-11) % Eos % (Auto) 2.5 (0-4) % Baso % (Auto) 0.7 (0-2) % Lymph # (Auto) 1.8 (1.2-4.9) X10*3/uL Edwards # (Auto) 0.5 (0.1-1.2) X10*3/uL Eos # (Auto) 0.2 (0.0-0.4) X10*3/uL Baso # (Auto) 0.1 (0.0-0.2) X10*3/uL Abs Immat Gran (auto) 0.02 (0.00-0.03) X10*3/uL Absolute Neuts (auto) 4.2 (2.0-8.3) x10*3/uL Absolute Nucleated RBC 0.000 (0.0-0.012) X10*3/uL Nucleated RBC % (auto) 0.0 (0.0-0.2) /100WBC PT 12.2 (11.1-13.3) SEC INR 1.0 (0.9-1.1) Sodium 139 (135-145) mmol/L Potassium 3.3 D (3.3-5.1) mmol/L Chloride 102 (96-108) mmol/L Carbon Dioxide 29 (22-29) mmol/L Anion Gap 11 L (12-20) BUN 18 H (9-16) mg/dL Creatinine 1.01 (0.5-1.4) mg/dL Estim Creat Clear Calc 111.7 Estimated GFR > 60 Random Glucose 138 H (60-115) mg/dL Calcium 10.0 (8.4-10.2) mg/dL Magnesium 1.9 (1.6-2.6) mg/dL Total Bilirubin 0.7 (0.0-1.0) mg/dL AST 41 H (5-37) U/L ALT 78 H (0-40) U/L Alkaline Phosphatase 96 (39-117) U/L Troponin I High Sens < 2.7 (<3.5-35.0) ng/L Total Protein 8.6 H (6.5-8.0) g/dL Albumin 4.9 (3.5-5.0) g/dL Lipase 28 (8-78) U/L Urine Color Yellow Urine Appearance Clear Urine pH 6.0 (5.0-9.0) Ur Specific Bethel <= 1.005 (1.005-1.025) Urine Protein Negative (Neg-Trace) mg/dL Urine Glucose (UA) Negative (Negative) mg/dL Urine Ketones Negative (Negative) mg/dL Urine Blood Negative (Negative) Urine Nitrite Negative (Negative) Ur Leukocyte Esterase Negative (Negative) COVID-19 (JUANCARLOS) Negative (Negative) COVID-19 Clin Com See Note Influenza Type A (FRANCISCO) Negative (Negative) Influenza Type B (FRANCISCO) Negative (Negative) Influenza A & B Note See Note 01/20/23 Range/Units 18:46 WBC (4.8-10.8) X10*3/uL RBC (4.60-5.80) X10*6/uL Hgb (14.0-18.0) g/dl Hct (42.0-52.0) % MCV (80.0-98.0) fL MCH (27.0-33.0) pg MCHC (31.0-36.0) g/dl RDW (11.0-16.0) % Plt Count (160-400) X10*3/uL MPV (9.4-12.4) fL Immature Gran % (Auto) (0.0-0.4) % Neut % (Auto) (45-73) % Lymph % (Auto) (20-40) % Edwards % (Auto) (2-11) % Eos % (Auto) (0-4) % Baso % (Auto) (0-2) % Lymph # (Auto) (1.2-4.9) X10*3/uL Edwards # (Auto) (0.1-1.2) X10*3/uL Eos # (Auto) (0.0-0.4) X10*3/uL Baso # (Auto) (0.0-0.2) X10*3/uL Abs Immat Gran (auto) (0.00-0.03) X10*3/uL Absolute Neuts (auto) (2.0-8.3) x10*3/uL Absolute Nucleated RBC (0.0-0.012) X10*3/uL Nucleated RBC % (auto) (0.0-0.2) /100WBC PT (11.1-13.3) SEC INR (0.9-1.1) Sodium (135-145) mmol/L Potassium (3.3-5.1) mmol/L Chloride (96-108) mmol/L Carbon Dioxide (22-29) mmol/L Anion Gap (12-20) BUN (9-16) mg/dL Creatinine (0.5-1.4) mg/dL Estim Creat Clear Calc Estimated GFR Random Glucose (60-115) mg/dL Calcium (8.4-10.2) mg/dL Magnesium (1.6-2.6) mg/dL Total Bilirubin (0.0-1.0) mg/dL AST (5-37) U/L ALT (0-40) U/L Alkaline Phosphatase (39-117) U/L Troponin I High Sens < 2.7 (<3.5-35.0) ng/L Total Protein (6.5-8.0) g/dL Albumin (3.5-5.0) g/dL Lipase (8-78) U/L Urine Color Urine Appearance Urine pH (5.0-9.0) Ur Specific Bethel (1.005-1.025) Urine Protein (Neg-Trace) mg/dL Urine Glucose (UA) (Negative) mg/dL Urine Ketones (Negative) mg/dL Urine Blood (Negative) Urine Nitrite (Negative) Ur Leukocyte Esterase (Negative) COVID-19 (JUANCARLOS) (Negative) COVID-19 Clin Com Influenza Type A (FRANCISCO) (Negative) Influenza Type B (FRANCISCO) (Negative) Influenza A & B Note Independent Interpretation I performed an independent interpretation of an: EKG (Ventricular rate of 80 SD normal, QRS normal, QT/QTC normal. No ST elevations or inversions concerning for acute ischemic) Radiology Impression Discussion of test interpretation with radiology: I have reviewed the radiologist's reading. Chronic Conditions Patient?s care impacted by: Hypertension Critical Care Time Critical Care Time Critical Care Time: No Discharge Plan Discharge Clinical Impression: Chest pain, Anxiety Patient Disposition: Home, Self-Care Instructions: Chest Pain (DC), Anxiety (ED) Additional Instructions: Take your medications as prescribed. If you were prescribed antibiotics today, it is important that you take your medication to their entirety, do not skip any doses, do not finish them early. Follow-up with your primary care provider this week. Return to the emergency department with new or worsening symptoms. Such as fevers, chills, chest pain, shortness of breath, nausea, vomiting, dizziness, headache, vision changes, lethargy In case of emergency call 911 Prescriptions: No Action amlodipine [Norvasc] 5 mg tablet 5 mg PO DAILY Qty: 30 11RF hydrochlorothiazide 25 mg tablet 25 mg PO DAILY Qty: 90 3RF valsartan 80 mg tablet 80 mg PO BID 90 Days Qty: 180 5RF metoprolol succinate 25 mg tablet extended release 24 hr 25 mg PO DAILY Qty: 30 6RF rosuvastatin 20 mg tablet 20 mg PO DAILY Qty: 30 5RF omega-3 acid ethyl esters [Lovaza] 1 gram capsule 2 cap PO BID Qty: 120 4RF Referrals: [facility] [Provider Group] - 2 days Jovany Womack III, MD [Primary Care Provider] - 2 days Stand Alone Forms: Work/School Release Interventions: ED Discharge Assessment Last Done: 01/20/23 19:49 Discharge Date/Time: 01/20/23 19:50
[2023-01-20 15:41] LABS: MANUAL DIFF FLAG NO
[2023-01-20 15:45] LABS: Basophils Absolute Auto 0.1 X10*3/uL (0.0-0.2); Basophils Percent Auto 0.7 % (0-2); Eosinophils Absolute Auto 0.2 X10*3/uL (0.0-0.4); Eosinophils Percent Auto 2.5 % (0-4); Hematocrit 44.2 % (42.0-52.0); Hemoglobin 15.7 g/dl (14.0-18.0); Imm Gran Abs Auto 0.02 X10*3/uL (0.00-0.03); Imm Gran Pct Auto 0.3 % (0.0-0.4); Lymphocytes Absolute Auto 1.8 X10*3/uL (1.2-4.9); Lymphocytes Percent Auto 26.6 % (20-40); Mean Corpuscular HGB Conc 35.5 g/dl (31.0-36.0); Mean Corpuscular Hemoglobin 31.9 pg (27.0-33.0); Mean Corpuscular Volume 89.8 fL (80.0-98.0); Monocytes Absolute Auto 0.5 X10*3/uL (0.1-1.2); Monocytes Percent Auto 7.9 % (2-11); Neutrophils Absolute Auto 4.2 x10*3/uL (2.0-8.3); Platelet Count 151 X10*3/uL (160-400); Red Blood Count 4.92 X10*6/uL (4.60-5.80); Red Cell Distribution Width 12.4 % (11.0-16.0); White Blood Count 6.8 X10*3/uL (4.8-10.8)
[2023-01-20 15:56] LABS: Prothrombin Time 12.2 SEC (11.1-13.3)
[2023-01-20 15:57] LABS: Alanine Aminotransferase 78 U/L (0-40); Albumin Level 4.9 g/dL (3.5-5.0); Alkaline Phosphatase 96 U/L (39-117); Anion Gap 11 (12-20); Aspartate Amino Transferase 41 U/L (5-37); Bilirubin Total 0.7 mg/dL (0.0-1.0); Blood Urea Nitrogen 18 mg/dL (9-16); Carbon Dioxide 29 mmol/L (22-29); Chloride 102 mmol/L (96-108); Creatinine Clr Calc Pharmacy 111.7; Estimated Glomerular Filt Rate > 60; Glucose Random 138 mg/dL (60-115); Lipase 28 U/L (8-78); Magnesium 1.9 mg/dL (1.6-2.6); Potassium 3.3 mmol/L (3.3-5.1); Sodium 139 mmol/L (135-145); Total Protein 8.6 g/dL (6.5-8.0)
[2023-01-20 16:05] LABS: COVID-19 Test Negative (Negative); IDNOW Serial# 9DB6401D; IDNOW Serial# BCCEAD1C; Influenza A Negative (Negative); Influenza B2 Negative (Negative)
[2023-01-20 16:07] LABS: Troponin-I High Sensitivity < 2.7 ng/L (<3.5-35.0)
[2023-01-20 17:14] VITALS: BP 127/83; PULSE 79; RESP 18; TEMP 37.3; O2SAT 99
[2023-01-20 17:32] VITALS: PULSE 85
--- NOTE | 2023-01-20 17:37 | PC.NURSE ---
pt in bed resting w/o chest pain- states he has not had any since or prior to being here to this RN. reports intermitt dizziness though none at this time and walked to the bathroom- sending urine now. SBP 120s. no distress. talks full sentences. +CMS
[2023-01-20 17:50] LABS: Appearance Urine Clear; Color Urine Yellow; Glucose Urine UA Negative (Negative); Leukocyte Esterase Urine Negative (Negative); Nitrite Urine Negative (Negative); Specific Gravity - Urine <= 1.005 (1.005-1.025); Urine Blood Negative (Negative); Urine Ketones Negative (Negative); Urine Protein Negative (Neg-Trace)
[2023-01-20 19:02] VITALS: BP 125/80; PULSE 85; RESP 16; O2SAT 98
[2023-01-20 19:23] LABS: Troponin-I High Sensitivity < 2.7 ng/L (<3.5-35.0)
[2023-01-20 19:48] VITALS: BP 117/73; PULSE 68; RESP 16; O2SAT 98
== END 2023-01-20 19:50 | disposition home or self-care (01) ==
PROVIDERS: Nurse Practitioner Family; Physician Assistant; Emergency Provider Emergency Medicine; PCP Internal Medicine
DX: R07.89 Other chest pain (principal); F41.1 Generalized anxiety disorder; F43.0 Acute stress reaction; I10 Essential (primary) hypertension; G47.33 Obstructive sleep apnea (adult) (pediatric); Z11.52 Encounter for screening for COVID-19; Z20.822 Contact with and (suspected) exposure to COVID-19; Z79.899 Other long term (current) drug therapy
CPT/HCPCS: 36415; 71046; 80053; 81003; 83690; 83735; 84484; 85025; 85610; 87502; 87635; 93005; 99283; 99285

== ENCOUNTER 2023-01-30 08:43 | Outpatient (AMB) | payer OTHER, SELFPAY ==
[2023-01-30 08:50] VITALS: BP 124/82; PULSE 81; BMI 29.3
--- NOTE | 2023-01-30 08:50 | A.OFFVIS_ITS ---
Intake Vital Signs 01/30/23 08:50 Height 5 ft 9 in Weight 198 lb 6.656 oz BMI 29.3 BP 124/82 Blood Pressure Location Lt brachial Position Sitting Pulse 81 Intake Visit Reasons: FU regarding Medication Intake Note: Follow-up regarding medication was in the ED 2 weeks ago with rapid heart rate c/o facial numbness and dizziness [employer] Required: No Allergies No Known Allergies Allergy (Verified 01/20/23 15:14) Medication List - Last Reconciled 01/30/23 by Tereso Ren MD amlodipine 5 mg PO DAILY hydrochlorothiazide 25 mg PO DAILY metoprolol succinate ER 25 mg PO DAILY omega-3 acid ethyl esters (Lovaza) 2 caps PO BID rosuvastatin 20 mg PO DAILY valsartan 80 mg PO BID 90 days HPI HPI Comments History of Present Illness Details Sebas comes for follow-up. He recently came to the emergency room because he started having fluttering in his chest and subsequently measure the blood pressure is elevated got anxious and a blood pressure kept getting elevated going up to 170/119 and when he came to the emergency room he was monitored. His troponin was negative. He has EKG did not show any significant acute changes. However he was told that he might have PVCs. Although there is no documentation. He did not have any formal brain imaging. He did have numbness in his face. He is concerned about it as numbness is still persistent. He continues to have intermittent symptoms of palpitation very feels rapid fluttering in the chest. He measures his blood pressure that time and slightly elevated in the systolic 130-140 range. He comes for urgent follow-up visit today. His triglycerides have significantly improved from 1000 to 297 range. He uses CPAP regularly. [facility] Surgical History H/O removal of cyst Family History Father HTN (hypertension) Mother HTN (hypertension) Maternal Grandfather CAD (coronary artery disease) Maternal Grandmother CAD (coronary artery disease) Social History Alcohol intake: current Alcohol intake frequency: a few times a month Patient Tobacco Use Status: Never used Tobacco Review of Systems Const Denies chills, Denies fatigue, Denies fever(s), Denies frequent falls, Denies weakness, Denies weight gain and Denies weight loss ENT Denies dizziness Card Denies chest pain, Denies leg edema, Denies lightheadedness, Denies palpitations, Denies dyspnea, Denies dyspnea on exertion, Denies orthopnea and Denies other (loss of consciousness) Resp Denies cough, Denies dyspnea and Denies dyspnea on exertion GI Denies hematochezia and Denies change in stool character Musc Denies abnormal gait, Denies muscle weakness, Denies numbness, Denies radiating pain into limb and Denies tingling Neuro Denies abnormal gait, Denies dizziness, Denies frequent falls, Denies numbness, Denies tingling and Denies weakness Endo Denies fatigue and Denies palpitations Physical Exam Vital Signs: Last Vital Signs Pulse 81 01/30/23 08:50 BP 124/82 01/30/23 08:50 BMI result Body Mass Index 29.3 Const General: cooperative, comfortable, no acute distress, alert, awake and well groomed Nutritional Appearance: overweight Orientation/consciousness: patient oriented x3 Limitations: no limitations Neck Neck: Yes trachea midline, Yes supple and Yes no JVD Resp Effort & Inspection: normal respiratory effort Auscultation: clear to auscultation bilaterally Cardio Jugular venous distension: no JVD Palpation: normal PMI Rate: regular rate Rhythm: regular rhythm Heart sounds: S1 normal heart sound present, S2 normal heart sound present, no click, no gallops, no murmurs and no rubs Skin General skin exam: no rashes or lesions noted Neuro General: patient oriented x3 and no focal motor deficits Assessment & Plan Assessment & Plan (1) Palpitations: Code(s): R00.2 - Palpitations Plan: Patient with recent onset symptoms of palpitation which are most suggestive extra systoles and can be present although atrial fibrillation is likely given his risk factors. Will obtain a 7 day Holter monitor to assess for the same. Advised to avoid stimulants. Stress mitigation strategies advised. Advised to follow-up blood pressure closely see below. Patient also having associated symptoms of facial numbness. Will obtain a CT brain with and without contrast to evaluate for any intracranial pathology (2) Uncontrolled hypertension: Code(s): I10 - Essential (primary) hypertension Plan: Blood pressure which is been generally very well control recently his blood pressure has been slightly elevated especially when he gets symptoms of palpitation. These are probably driven by anxiety/stress related to it. Advised stress mitigation strategies. Continue other medications. Advised to continue monitor blood pressure at home. Low-salt diet was discussed. Continue CPAP therapy. (3) Hyperlipidemia: Code(s): E78.5 - Hyperlipidemia, unspecified Plan: Marked hyperlipidemia which is improved with low was are therapy. Continue statin therapy as well. Follow-up lipid panel in 3 months time. Continue both low was and statin therapy to reduce long-term risk. Will follow up in the clinic in 6 months time, sooner p.r.n.. Thank you for allowing me to partake in his care Orders: Orders CT head/brain wo/w IV con Today R20.0 - Anesthesia of skin Coding Level of Care Code Est Pt Level 4 (05013) Diagnoses Palpitations R00.2 Uncontrolled hypertension I10 Hyperlipidemia E78.5
== END 2023-01-30 09:17 | disposition home or self-care (01) ==
PROVIDERS: PCP Internal Medicine; Visit Provider Internal Medicine Cardiovascular Disease
DX: R00.2 Palpitations (principal); I10 Essential (primary) hypertension; E78.5 Hyperlipidemia, unspecified
CPT/HCPCS: 99214

== ENCOUNTER → 2023-01-30 08:43 | Outpatient (BNVA) | payer OTHER, SELFPAY | PROVIDERS: PCP Internal Medicine; Visit Provider Internal Medicine Cardiovascular Disease ==

== ENCOUNTER 2023-03-14 07:13 | Outpatient (REF) | payer OTHER, SELFPAY ==
--- NOTE | ~2023-03-14 | CT_ITS ---
EXAMINATION: CT HEAD WITHOUT CONTRAST CLINICAL INFORMATION: Anesthesia of skin. COMPARISON: None. TECHNIQUE: Contiguous axial imaging was performed from the skullbase to vertex without intravenous administration of contrast. This CT examination was performed using dose optimization techniques as appropriate, variously including the following: *Automated exposure control *Adjustment of mA and/or kV according to patient size (this includes techniques or standardized protocols for targeted exams where dose is matched to indication/reason for exam; i.e. extremities or head) *Use of iterative reconstruction technique DLP: 815 mGy-cm. FINDINGS: There is no evidence of acute intracranial hemorrhage or territorial infarction. No abnormal mass effect or midline shift is seen. Jolly to white matter differentiation is well preserved. No extra-axial fluid collections are identified. There is mild disproportionate prominence of the lateral ventricles relative to the sulcal spaces, though without dilatation of the temporal horns, possibly developmental in etiology. The remainder of the ventricular system appears normal. There is no abnormal attenuation within the brain parenchyma. The osseous structures and soft tissues are normal. The mastoid air cells and visualized portions of the paranasal sinuses are well aerated. CT/CT head/brain wo IV con IMPRESSION: No acute intracranial pathology.
== END 2023-03-14 07:14 | disposition home or self-care (01) ==
LOC: HO.CT 07:13
PROVIDERS: PCP Internal Medicine; Visit Provider Internal Medicine Cardiovascular Disease
DX: R20.0 Anesthesia of skin (principal)
CPT/HCPCS: 70450

== ENCOUNTER 2023-08-01 09:06 | Outpatient (AMB) | payer OTHER, SELFPAY ==
--- NOTE | 2023-08-01 09:20 | MHC.OFFVIS ---
Vital Signs 08/01/23 09:21 Height 5 ft 9 in Weight 189 lb 9.561 oz BMI 28.0 BP 116/74 Blood Pressure Location Lt brachial Position Sitting Pulse 76 Intake Visit Reasons: 6 mth f/up ct/ 7 day Intake Note: 6 month follow-up after CT (holter never got ordered) feelng good not having many palpitations Director Corporate Required: No Allergies No Known Allergies Allergy (Verified 01/20/23 15:14) Medication List - Last Reconciled 08/01/23 by Tereso Ren MD amlodipine 5 mg PO DAILY hydrochlorothiazide 25 mg PO DAILY metoprolol succinate ER 25 mg PO DAILY omega-3 acid ethyl esters 2 caps PO BID rosuvastatin 20 mg PO DAILY valsartan 80 mg PO BID 90 days HPI Comments Details: Sebas comes for follow-up. He has been doing well from cardiac perspective. He denies any significant exertional chest pain. He over the weekend went kayaking and camping and lot of activity and has point pain in the right upper chest which is tender to touch in some areas. Patient denies progressive palpitations. Still feels flutters in his chest but it notice them and symptoms then subside. No lightheadedness, syncope. No heart failure symptoms. Blood pressure is generally well controlled at home. [facility], [facility] Medical History (Updated 08/01/23 @ 09:46 by Tereso Ren MD) Uncontrolled hypertension HTN (hypertension) Surgical History H/O removal of cyst Family History Father HTN (hypertension) Mother HTN (hypertension) Maternal Grandfather CAD (coronary artery disease) Maternal Grandmother CAD (coronary artery disease) Social History Alcohol intake: current Alcohol intake frequency: a few times a month Patient Tobacco Use Status: Never used Tobacco Review of Systems Const Denies chills, Denies fatigue, Denies fever(s), Denies frequent falls, Denies weakness, Denies weight gain and Denies weight loss ENT Denies dizziness Card Denies chest pain, Denies leg edema, Denies lightheadedness, Denies palpitations, Denies dyspnea, Denies dyspnea on exertion, Denies orthopnea and Denies other (loss of consciousness) Resp Denies cough, Denies dyspnea and Denies dyspnea on exertion GI Denies hematochezia and Denies change in stool character Musc Denies abnormal gait, Denies muscle weakness, Denies numbness, Denies radiating pain into limb and Denies tingling Neuro Denies abnormal gait, Denies dizziness, Denies frequent falls, Denies numbness, Denies tingling and Denies weakness Endo Denies fatigue and Denies palpitations Physical Exam Vital Signs: Last Vital Signs Pulse 76 08/01/23 09:21 BP 116/74 08/01/23 09:21 BMI result Body Mass Index 28.0 Const General: cooperative, comfortable, no acute distress, alert, awake and well groomed Nutritional Appearance: overweight Orientation/consciousness: patient oriented x3 Limitations: no limitations Neck Neck: Yes trachea midline, Yes supple and Yes no JVD Resp Effort & Inspection: normal respiratory effort Auscultation: clear to auscultation bilaterally Cardio Jugular venous distension: no JVD Palpation: normal PMI Rate: regular rate Rhythm: regular rhythm Heart sounds: S1 normal heart sound present, S2 normal heart sound present, no click, no gallops, no murmurs and no rubs Skin General skin exam: no rashes or lesions noted Neuro General: patient oriented x3 and no focal motor deficits Assessment & Plan Assessment & Plan (1) HTN (hypertension): Code(s): I10 - Essential (primary) hypertension Category: Medical Plan: Hypertension which is extremely well optimized today. Continue current therapy. Importance of good blood pressure control was discussed. Generally at home also blood pressure is well controlled. Participate in stress mitigation strategies. Low-salt diet was discussed. Maintain adequate hydration. Advised to call me if his blood pressure readings are significantly elevated develops any other symptoms. (2) Hyperlipidemia: Code(s): E78.5 - Hyperlipidemia, unspecified Category: Medical Plan: Mixed hyperlipidemia currently on dual therapy with Lovaza as well as rosuvastatin. Advised lipid panel near future. Continue maintain healthy lifestyle with regular physical activity and good diet. Follow up in the clinic in 1 year's time, sooner p.r.n.. Thank you for allowing me to partake in his care Orders: Orders Lipid Panel Today E78.5 - Hyperlipidemia, unspecified Medications: Refilled rosuvastatin 20 mg PO DAILY 30 tabs 0RF metoprolol succinate ER 25 mg PO DAILY 30 tabs 6RF Coding Level of Care Code Est Pt Level 4 (99936) Diagnoses HTN (hypertension) I10 Hyperlipidemia E78.5
[2023-08-01 09:21] VITALS: BP 116/74; PULSE 76; BMI 28.0
== END 2023-08-01 09:47 | disposition home or self-care (01) ==
PROVIDERS: PCP Internal Medicine; Visit Provider Internal Medicine Cardiovascular Disease
DX: I10 Essential (primary) hypertension (principal); E78.5 Hyperlipidemia, unspecified
CPT/HCPCS: 99214

== ENCOUNTER → 2023-08-01 09:06 | Outpatient (BNVA) | payer OTHER, SELFPAY | PROVIDERS: PCP Internal Medicine; Visit Provider Internal Medicine Cardiovascular Disease ==

== ENCOUNTER 2024-01-08 13:47 | Outpatient (AMB) | payer BC, SELFPAY ==
--- NOTE | 2024-01-08 13:49 | A.OFFVIS_ITS ---
Vital Signs 01/08/24 13:52 Height 5 ft 9 in Weight 210 lb 8 oz BMI 31.1 BP 140/100 H Blood Pressure Location Lt brachial Position Sitting Pulse 74 Pulse Source Pulse Oximeter Pulse Oximetry (%) 98 Oxygen Delivery Method Room Air Intake Visit Reasons: 1yr follow up JEFF Intake Note: Patient presents for a follow up for JEFF last seen 08/2022. 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 He says since he has been using his CPAP his quality of sleep has improved and wakes up without headaches. He uses his CPAP 4-8 hours per night 82/90 days with a 91% compliance, over 4 hours most nights, pressures are 8.6 to 11.1, leaks 2.8, and AHI 1:1. He works over 12 hours per day and noticed his sleep used to be fragmented, and used to snore heavily. He doesn't use any drugs, drinks alcohol occasionally, doesn't smoke, denies headaches, nausea, vomiting, nor any vision changes. He cleans the mask once a week and changes the filter as needed. [facility] Medical History (Updated 01/08/24 @ 15:25 by Yin Delarosa PA-C) Uncontrolled hypertension HTN (hypertension) Surgical History H/O removal of cyst Family History Father HTN (hypertension) Mother HTN (hypertension) Maternal Grandfather CAD (coronary artery disease) Maternal Grandmother CAD (coronary artery disease) Social History Alcohol intake: current Alcohol intake frequency: a few times a month Patient Tobacco Use Status: Never used Tobacco Review of Systems Const Reports as per HPI ENT Reports Normal hearing present Neuro Reports as per HPI and Reports Normal hearing present Physical Exam Vital Signs: Last Vital Signs Pulse 74 01/08/24 13:52 BP 140/100 H 01/08/24 13:52 Pulse Ox 98 01/08/24 13:52 Oxygen Delivery Method Room Air 10/28/24 13:52 BMI result Body Mass Index 31.1 Const General: cooperative and comfortable Nutritional Appearance: average body habitus Orientation/consciousness: patient oriented x3 Limitations: no limitations Eyes Pupils: Equal, round and reactive pupils present and Pupils normal by confrontation Neck Neck: Yes full ROM, Yes trachea midline and Yes supple Resp Effort & Inspection: normal respiratory effort and able to speak in complete sentences Neuro General: patient oriented x3, CN's II-XI intact bilaterally and deep tendon reflexes 2+ bilaterally Cranial nerves: Yes CN's II-XII intact bilaterally, Yes Equal, round and reactive pupils present, Yes Normal accommodation reflex present, Yes Bilaterally intact EOM present, Yes Midline tongue present, Yes Normal hearing present and Yes Ability to bilaterally elevate shoulders present Cognition (Neuro): normal cognition Gait exam (Neuro): Normal gait present Motor exam (neuro): 5/5 motor strength present throughout Deep tendon reflexes (DTR's): Right triceps reflex intensity grade: 2+, Left triceps reflex intensity grade: 2+, Rt Biceps (C5, C6): 2+, Left biceps reflex intensity grade: 2+, Right brachioradialis reflex intensity grade: 2+, Left brachioradialis reflex intensity grade: 2+, Right patellar reflex intensity grade: 2+, Left patellar reflex intensity grade: 2+, Right ankle reflex intensity grade: 2+ and Left ankle reflex intensity grade: 2+ Coordination: [id number] test normal Psych Appearance: grossly normal Speech and movement: Normal speech and movement present Affect: normal affect Attitude: cooperative Thought process: Normal thought process present Thought content: Normal thought content present Insight: Good insight present (Psych) Judgement: Good judgement present (Psych) Assessment & Plan Assessment & Plan (1) Obstructive sleep apnea: Code(s): G47.33 - Obstructive sleep apnea (adult) (pediatric) Category: Medical Plan: JEFF: Continue on CPAP, use good sleep hygiene practices compliance stressed Coding Level of Care Code Est Pt Level 3 (70158) Diagnoses Obstructive sleep apnea G47.33
[2024-01-08 13:52] VITALS: BP 140/100; PULSE 74; O2SAT 98; BMI 31.1
== END 2024-01-08 14:14 | disposition home or self-care (01) ==
LOC: HO.HSMS 13:48
PROVIDERS: Absent Provider Psychiatry & Neurology Neurology; PCP Internal Medicine; Visit Provider Psychiatry & Neurology Neurology
DX: G47.33 Obstructive sleep apnea (adult) (pediatric) (principal)
CPT/HCPCS: 99213

== ENCOUNTER → 2024-01-08 13:47 | Outpatient (BNVA) | payer BC, SELFPAY | PROVIDERS: Absent Provider Psychiatry & Neurology Neurology; PCP Internal Medicine; Visit Provider Psychiatry & Neurology Neurology ==

== ENCOUNTER 2024-07-30 09:36 | Outpatient (AMB) | payer BC, SELFPAY ==
--- NOTE | 2024-07-30 09:54 | A.OFFVIS_ITS ---
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 No cardiac symptoms. He said he has been doing extremely well. He has been exercising and walking around the pond and can walk 3 lb without having any chest pain. He said that has all resolved. Blood pressure is well controlled. He has noted recently to have elevated hemoglobin A1c and currently has intensified his lifestyle modification. Currently not on any diuretic medications. He is worried about hydrochlorothiazide as he said he has excessive diuresis. This might be also related to uncontrolled sugars. His LDL is extremely well optimized at 19 and triglycerides have improved significantly. [facility] Medical History Uncontrolled hypertension HTN (hypertension) Surgical History H/O removal of cyst Family History Father HTN (hypertension) Mother HTN (hypertension) Maternal Grandfather CAD (coronary artery disease) Maternal Grandmother CAD (coronary artery disease) Social History Alcohol intake: current Alcohol intake frequency: a few times a month Patient Tobacco Use Status: Never used Tobacco Review of Systems Const Denies chills, Denies fatigue, Denies fever(s), Denies frequent falls, Denies weakness, Denies weight gain and Denies weight loss ENT Denies dizziness Card Denies chest pain, Denies leg edema, Denies lightheadedness, Denies palpitations, Denies dyspnea, Denies dyspnea on exertion, Denies orthopnea and Denies other (loss of consciousness) Resp Denies cough, Denies dyspnea and Denies dyspnea on exertion GI Denies hematochezia and Denies change in stool character Musc Denies abnormal gait, Denies muscle weakness, Denies numbness, Denies radiating pain into limb and Denies tingling Neuro Denies abnormal gait, Denies dizziness, Denies frequent falls, Denies numbness, Denies tingling and Denies weakness Endo Denies fatigue and Denies palpitations Physical Exam Vital Signs: Last Vital Signs Pulse 65 07/30/24 09:55 BP 130/78 07/30/24 09:55 BMI result Body Mass Index 29.6 Const General: cooperative, comfortable, no acute distress, alert, awake and well groomed Nutritional Appearance: overweight Orientation/consciousness: patient oriented x3 Limitations: no limitations Neck Neck: Yes trachea midline, Yes supple and Yes no JVD Resp Effort & Inspection: normal respiratory effort Auscultation: clear to auscultation bilaterally Cardio Jugular venous distension: no JVD Palpation: normal PMI Rate: regular rate Rhythm: regular rhythm Heart sounds: S1 normal heart sound present, S2 normal heart sound present, no click, no gallops, no murmurs and no rubs Skin General skin exam: no rashes or lesions noted Neuro General: patient oriented x3 and no focal motor deficits Office Procedures EKG Details: EKG shows normal sinus rhythm with normal EKG [id number], Complete Assessment & Plan Assessment & Plan (1) HTN (hypertension): Code(s): I10 - Essential (primary) hypertension Category: Medical Plan: Hypertension which is currently well optimized although on slightly on the higher side on today's exam. At home he says blood pressure is much better control. At this point time I would because of side effects of hydrochlorothiazide I would decrease hydrochlorothiazide to 12.5 mg daily and eventually discontinued. Meanwhile increase valsartan to 160 mg b.i.d.. Advised to monitor blood pressure at home maintain a log. Advised continued aggressive risk factor modification. Continue amlodipine therapy. Continue low-salt diet. Discussed goal blood pressure to be less than 130/84 even closer to 120/80 given his age. Continue CPAP therapy for sleep apnea. (2) Hyperlipidemia: Code(s): E78.5 - Hyperlipidemia, unspecified Category: Medical Plan: Significant mixed hyperlipidemia with extremely well optimized LDL on current dose of Crestor as well as improve triglycerides. He is noted to have recent type 2 diabetes with hemoglobin A1c of 6.5%. I think with better control of sugars and reduction hydrochlorothiazide his triglycerides should get better overall. Continue current medical therapy. Continue monitor lipid panel at least every year. Continue lifestyle modification. Encouraged to maintain activity level as tolerated. Will follow up in the clinic in 2 years time, sooner p.r.n.. Thank you allowing me to partake in his care Medications: New valsartan (Diovan) 160 mg PO BID 180 tabs 1RF Changed From hydrochlorothiazide 25 mg PO DAILY 90 tabs 3RF To hydrochlorothiazide 12.5 mg (1/2 x 25 mg) PO DAILY 90 tabs 3RF Discontinued valsartan Discontinued Reason: Doctor's Order 80 mg PO BID 90 days 180 tabs 3RF Coding Level of Care Code Est Pt Level 4 (66139) Complex EM visit Add On G2211 Diagnoses HTN (hypertension) I10 Hyperlipidemia E78.5 CPT Codes EKG - CPT: [id number], Complete ([id number])
[2024-07-30 09:55] VITALS: BP 130/78; PULSE 65; BMI 29.6
--- OUTSIDE RECORDS SUMMARY | 2024-07-30 10:34 | XMS_ITS | Clinical Summary ---
Author Organization [facility] Address [address] [place] [id number] Phone Care Team Providers Care Cooker Cleaner Name Role Phone Unavailable Primary Care Provider Unavailabl e Immunizations Immunization Administration Dates Next Due DTP 10/11/1988, 6,1984,06/11,1984 Hep B, ped/adol 03/14/1997,11/06/1996,08/16/1996 Hib (HbOC) 11/11/1986 MMR 08/16/1996,10/05/1994,06/11/1985 Meningococcal Polysaccharide 10/25/2002 OPV 10/11/1988, 6,1984,04/13 Td (adult) (MBL), 2 Lf tetan us toxoid, PF, adsorbed 10/25/2002 Td (adult) (Tenivac), 5 Lf t etanus toxoid, PF, adsorbed 10/25/1993 Social History Tobacco Use Types Packs/Day Years Used Date Smoking Tobacco: Never Assessed Sex and Gender Information Value Date Recorded Sex Assigned at Not on file Legal Sex Male 4:16 PM EDT Gender Identity Not on file Sexual Orientation Not on file Plan of Treatment Health Maintenance Due Date Last Done Comments Varicella Vaccines (1 of 2 - 13+ 2-dose series) 01/28/1997 DTaP,Tdap,and Td Vaccines (6 - Tdap) 10/26/2002 10/25/2002, 10/25/1993, 10/11/1988, Additional history exists Influenza Vaccines (#1) 2023 COVID-19 Vaccine ( season) 2023 HIB Vaccines Completed 11/11/1986 IPV Vaccines Completed 10/11/1988, 10/0 03/1985, 1984, Additional history exists MMR Vaccines Completed 08/16/1996, 2 08/1994, 06/11/1985 Hepatitis B Vaccines Completed 03/14/1997, 11/06/1996, 08/16/1996 HPV Vaccines Aged Out No longer eligi ble based on patient's age to complete this topic Hepatitis A Vaccines Aged Out No long er eligible based on patient's age to complete this topic Men B Vaccine Aged Out No longer elig ible based on patient's age to complete this topic Meningococcal Vaccine Aged Out No ruchi kumar eligible based on patient's age to complete this topic Pneumococcal Vaccine Aged Out No long er eligible based on patient's age to complete this topic
--- OUTSIDE RECORDS SUMMARY | 2024-07-30 10:34 | XMS_ITS | Clinical Summary ---
Author Organization [address] Address [address] [place] [phone] Phone Care Team Providers Care Kiln Worker Name Role Phone Jovany Womack MD Primary Care Provider [phone] Allergies No known active allergies Medications amLODIPine (NORVASC) 5 mg tablet Take 1 Tablet by mouth daily. 2022 Active hydroCHLOROthia zide (HYDRODIURIL) 25 mg tablet Take 1 Tablet by mouth daily. 02/22/2022 Active metoprolol succinate (Kapspargo Sprinkle) 25 mg capsule,sprinkl e,ER 24hr Take 1 Tablet by mouth daily. Active omega-3 acid ethyl esters (LOVAZA) 1 gram capsule Take 2 Capsules by mouth 2 times daily. Active rosuvastatin (CRESTOR) 10 mg tablet Take 1 Tablet by mouth daily. Active valsartan (DIOVAN) 80 mg tablet Take 2 Tablets by mouth daily. 02/22/2022 Active blood-glucose sensor (FreeStyle Giancarlo 3 Plus Sensor) device 1 EA every 14 (fourteen) days. Box = Kit = EA 2 each 5 07/22/2024 Active Active Problems Problem Noted Date Diagnosed Date Diabetes mellitus type 2, di et-controlled ([facility]/HCC V24, CMS/HCC V28) 07/22/2024 Gout of foot 07/29/2020 Hypertension 02/16/2018 Fatty liver 11/23/2013 Hyperlipidemia 11/23/2013 Epistaxis 08/13/2010 Overview (02/26/2024): Recurrent, was told by ENT due to weak membranes and no further rx recommended Encounters Date Type Department Care Team Description 07/24/2024 Telephone Adult Medicine [address] [phone] Sudha Buckley RN 07/22/2024 1:00 PM EDT Office Visit Adult Medicine [address] [phone] Jovany Womack MD Diabetes mellitus type 2, diet-controlled (CMS/HCC V24, CMS/HCC V28) (Primary Dx); Elevated serum protein level; Mixed hyperlipidemia; Primary hypertension; Fatty liver; Malaise from Last 3 Months Immunizations Name Administration Dates Next Due Influenza trivalent, 0.5mL, preservative free (Fluarix; FluLaval; Fluzone) ages 6mo and older (Afluria) 3 years and older 12/15/2019,12/29/2016,12/24/2015,2014,01/01/2014 Moderna SARS-CoV-2 COVID-19, mRNA, LNP-S, preservative free 03/16/2021,07/22/2020 Td Tetanus diptheria (Tdvax) 7yo and older 12/06/2018 Tdap Tetanus diptheria acell ular pertussis (Boostrix; Adacel) 7yo and older 10/15/2008 Surgical History Surgery Date Site/Laterality Comments OTHER SURGICAL HISTORY PROCEDURE: EXCISION BENIGN LESION>1.25C; COMMENT: sebaceous cysts Medical History Medical History Date Comments Sebaceous cyst DX:Sebaceous cys t Otitis media DX:Otitis media; COMMENT: frequent OM Epistaxis DX:Epistaxis; CO MMENT: in winter Other specified disorder of male genital organs(608.89) DX:Other specified disorder of male genital organs(608.89); COMMENT: cyst on left testicle, ultrasound reassuring in the past Family History Medical History Relation Name Comments Hypertension Father Other: gout Father Other: IBS Maternal Grandmother Diabetes Mother Other: ibs Mother Relation Name Status Comments Brother Alive Father Alive htn, gout Maternal Grandfather Alive Maternal Grandmother Alive IBS Mother Alive dm 2, IBS Paternal Grandfather Alive dm Paternal Grandmother Alive dm Social History Tobacco Use Types Packs/Day Years Used Date Smoking Tobacco: Never Smokeless Tobacco: Never Tobacco Cessation:Counseling Given: Not Answered Alcohol Use Standard Drinks/Week Comments Yes 1.7 (1 standard drink = 0.6 oz p ure alcohol) Housing Instability Answer Date Recorde d Are you worried that in the next 2 months you may not have stable housing? No 07/16/2024 Food Access & Nutrition Answer Date Rec orded Do you have access to a vari ety of food including fruits and vegetables? Yes 07/16/2024 Access to Healthcare Answer Date Record ed Within the last 3 months, ho w many times did you visit the emergency department for your medical care? 0 07/16/2024 Health Literacy Answer Date Recorded How often do you need to hav e someone help you when you read instructions, pamphlets, or other written material from your doctor or pharmacy? Never 07/16/2024 Caregiver: How often do you need to have someone help you when you read instructions, pamphlets, or other written material from your doctor or pharmacy? Not on file 07/16/2024 Financial Risk Answer Date Recorded How hard is it for you to pa y for the very basics like food, housing, medical care, and air conditioning / heating? Not very hard 07/16/2024 Transportation Answer Date Recorded Has the lack of transportati on kept you from meetings, work, or from getting things needed for daily living? No Has the lack of transportati on kept you from medical appointments or from getting medications? No 07/16/2024 Social Isolation Answer Date Recorded How often do you feel lonely or isolated from th ose around you? Never 07/16/2024 Food Risk Answer Date Recorded Within the past 12 months we worried whether our food would run out before we got money to buy more. Never true 07/16/2024 Within the past 12 months th e food we bought just didn't last and we didn't have money to get more. Never true 07/16/2024 Dependent Care Answer Date Recorded Do you need help finding or paying for care for your loved ones. For example, child protection specialist or elderly care for an older adult? No 07/16/2024 Education Answer Date Recorded Do you think completing more education or training, like finishing a GED, going to college, or learning a trade, would be helpful for you? N/A 07/16/2024 Employment and Income Answer Date Recor ded During the last four weeks, have you been actively looking for work? No 07/16/2024 Living Situation Answer Date Recorded What is your living situation? 0 07/16/2024 Sex and Gender Information Value Date Recorded Sex Assigned at Not on file Legal Sex Male 4:38 PM EST Gender Identity Not on file Sexual Orientation Not on file Obstetrics History Last Filed Vital Signs Vital Sign Reading Time Taken Comments Blood Pressure 124/82 07/22/2024 1:02 PM EDT Pulse 71 07/22/2024 1:02 PM EDT Temperature 36.2 ??C (97.2 ??F) 07/22/2024 1:02 PM ED T Respiratory Rate 17 07/22/2024 1:02 PM EDT Oxygen Saturation 98% 07/22/2024 1:02 PM EDT Inhaled Oxygen Concentration - - Weight 92.1 kg (203 lb) 07/22/2024 1:02 PM EDT Height 175.3 cm (5' 9.02 ) 07/22/2024 1:02 PM ED T Body Mass Index 29.96 07/22/2024 1:02 PM EDT Plan of Treatment Upcoming Encounters Date Type Department Care Team (Late st Contact Info) Description 01/06/2025 1:15 PM EDT Office Visit Adult Medicine [address] [phone] Jovany Womack MD [address] [place] [address] 04/14/2025 9:30 AM EST Office Visit Adult [address] [phone] Jovany Womack MD [address] [place] [address] Health Maintenance Due Date Last Done Comments Diabetes: Annual Foot Exam 01/28/1994 Diabetes: Annual Retina Eye Exam 01/28/1994 Pneumococcal Vaccine: Pediatrics (0 to 5 Years) and At-Risk Patients (6 to 64 Years) (1 of 2 - PCV) 01/28/2003 HIV Screening 02/19/2022 Hepatitis C Screening 02/19/2022 COVID-19 Vaccine ( season) 2023 03/16/2021, 07/22/2020, 06/23/2020 Diabetes: Annual Urine Albumin-Creatinine Ratio (uACR) 07/22/2024 12/26/2016 Influenza Vaccine (Season Ended) 2024 12/23/2020, 12/15/2019, 12/29/2016, Additional history exists Diabetes: Blood Sugar Control Test (HGBA1C) 01/17/2025 07/17/2024, 10/17/2022 Depression Screening 07/16/2025 07/16/2024 Social Influencers of Health Screening 07/16/2025 07/16/2024 Diabetes: Annual GFR (Glomerular Filtration Rate) 07/17/2025 07/17/2024, 03/04/2024, 10/07/2022 Hypertension/CHF/CAD Annual BMP Blood Test 07/17/2025 07/17/2024, 03/04/2024, 10/07/2022 DTaP,Tdap,and Td Vaccines (9 - Td or Tdap) 12/06/2028 12/06/2018, 10/15/2008, 10/25/2002, Additional history exists Cholesterol Screening (Lipid Panel) 07/17/2029 07/17/2024, 03/04/2024, 10/07/2022 HIB Vaccines Completed 11/11/1986 IPV Vaccines Completed 10/11/1988, 1003/1985, 1984, Additional history exists MMR Vaccines Completed 08/16/1996, 09/11, 06/11/1985 Hepatitis B Vaccines Completed 03/14/1997, 11/06/1996, 08/16/1996 Meningococcal ACWY Vaccine Aged Out 10/25/2002 N o longer eligible based on patient's age to complete this topic HPV Vaccines Aged Out No longer eligi ble based on patient's age to complete this topic Hepatitis A Vaccines Aged Out No long er eligible based on patient's age to complete this topic Meningococcal B Vaccine Aged Out No l onger eligible based on patient's age to complete this topic RSV Immunization Patients Under 20 months Aged Out No longer eligible based on patient's age to complete this topic Varicella Vaccines Aged Out No longer eligible based on patient's age to complete this topic Procedures Procedure Name Priority Date/Time Associated Diagnosis Comments LIPID PANEL WITH REFLEX TO DIRECT LDL Routine 07/17/2024 8:49 AM EDT Pure hypercholesterolemia COMPREHENSIVE METABOLIC PANEL Routine 07/17/2024 8:49 AM EDT Encounter for long-term (current) use of medications Prediabetes HEMOGLOBIN A1C Routine 07/17/2024 8:49 AM EDT Prediabetes HM URINE ALBUMIN CREATININE RATIO Routine 12/26/2016 from Last 3 Months or Most Recently Relevant to Health Maintenance Results * (ABNORMAL) Lipid panel with reflex to direct LDL (07/17/2024 8:49 AM EDT) Cholesterol 86 0 - 200 mg/dL LAB CHEMISTRY METHOD 07/17/2024 1:03 PM [facility] Triglycerides 189(H) 0 - 150 mg/dL LAB CHEMISTRY METHOD 07/17/2024 1:03 PM [facility] HDL 29(L) >=40 mg/dL LAB CHEMISTRY METHOD 07/17/2024 1:03 PM [facility] LDL Calculated 19 0 - 100 mg/dL LAB CHEMISTRY METHOD 07/17/2024 1:03 PM [facility] VLDL Cholesterol Quan 37.8 mg/dL LAB CHEMISTRY METHOD 07/17/2024 1:03 PM [facility] Non HDL Chol. (LDL+VLDL) 57 <145 mg/dL LAB CHEMISTRY METHOD 07/17/2024 1:03 PM [facility] Chol/HDL Ratio 3.0 0.0 - 4.4 LAB CHEMISTRY METHOD 07/17/2024 1:03 PM [facility] Blood Venous blood specimen / Unknown Venipuncture / Unknown 07/17/2024 8:49 AM EDT 07/17/2024 8:49 AM EDT us Jovany Womack MD LAB BLOOD ORDERABLES Final Resu lt Performing Organization Address [facility]/ZIP Co de Phone Number [facility] [address] [place] [address], [place] [phone] * (ABNORMAL) Hemoglobin A1c (07/17/2024 8:49 AM EDT) Hemoglobin A1C 6.5(H) <6.5 % LAB CHEMISTRY METHOD 07/17/2024 11:24 AM EDT [facility] Mean Bld Glu Estim. 140 mg/dL LAB CHEMISTRY METHOD 07/17/2024 11:24 AM EDT [facility] Blood Venous blood specimen / Unknown Venipuncture / Unknown 07/17/2024 8:49 AM EDT 07/17/2024 8:49 AM EDT us Jovany Womack MD LAB BLOOD ORDERABLES Final Resu lt Performing Organization Address City/[facility]/ZIP Co de Phone Number [facility] [address] [place] [address], [place] [phone] * (ABNORMAL) Comprehensive metabolic panel (07/17/2024 8:49 AM EDT) Pathologist [facility] Sodium 133 133 - 145 mmol/L LAB CHEMISTRY METHOD 07/17/2024 1:03 PM EDT [facility] Potassium 3.7 3.5 - 5.5 mmol/L LAB CHEMISTRY METHOD 07/17/2024 1:03 PM EDT [facility] Chloride 97 96 - 110 mmol/L LAB CHEMISTRY METHOD 07/17/2024 1:03 PM EDT [facility] CO2 29 21 - 32 mmol/L LAB CHEMISTRY METHOD 07/17/2024 1:03 PM EDT [facility] Anion Gap 7 3 - 11 LAB CHEMISTRY METHOD 07/17/2024 1:03 PM [facility] Glucose 122(H) 70 - 100 mg/dL LAB CHEMISTRY METHOD 07/17/2024 1:03 PM [facility] BUN 16 5 - 25 mg/dL LAB CHEMISTRY METHOD 07/17/2024 1:03 PM [facility] Creatinine 1.14 0.70 - 1.30 mg/dL LAB CHEMISTRY METHOD 07/17/2024 1:03 PM [facility] eGFR 83 >=60 mL/min/1. 73m2 LAB CHEMISTRY METHOD 07/17/2024 1:03 PM [facility] Comment:Calculation based on the Chronic Kidney Disease Epidemiology Collaboration (CKD-EPI) equation refit without adjustment for race. BUN/Creatinine Ratio 14.0 LAB CHEMISTRY METHOD 07/17/2024 1:03 PM [facility] Calcium 9.9 8.5 - 10.5 mg/dL LAB CHEMISTRY METHOD 07/17/2024 1:03 PM [facility] AST (SGOT) 81(H) 10 - 42 unit/L LAB CHEMISTRY METHOD 07/17/2024 1:03 PM [facility] ALT (SGPT) 124(H) 10 - 60 unit/L LAB CHEMISTRY METHOD 07/17/2024 1:03 PM [facility] Alkaline Phosphatase 85 42 - 121 unit/L LAB CHEMISTRY METHOD 07/17/2024 1:03 PM [facility] Total Protein 8.6(H) 6.0 - 8.0 g/dL LAB CHEMISTRY METHOD 07/17/2024 1:03 PM [facility] Albumin 5.0 3.2 - 5.0 g/dL LAB CHEMISTRY METHOD 07/17/2024 1:03 PM [facility] Total Bilirubin 1.8(H) 0.0 - 1.4 mg/dL LAB CHEMISTRY METHOD 07/17/2024 1:03 PM EDT [facility] Blood Venous blood specimen / Unknown Venipuncture / Unknown 07/17/2024 8:49 AM EDT 07/17/2024 8:49 AM EDT Jovany Womack MD LAB BLOOD ORDERABLES Final Resu lt [facility] [address] [place] [address], [place] [phone] * Urine Albumin Creatinine Ratio (12/26/2016) Urine Albumin Creatinine Ratio Abstracted Historical Provider HEALTH MAINTENANCE Final Result from Last 3 Months or Most Recently Relevant to Health Maintenance Insurance [facility] Care Teams Kiln Worker Relationship Specialty Start Date End Date Jovany Womack MD [address] [place] [phone] PCP - General Internal Medicine 01/09/24
--- OUTSIDE RECORDS SUMMARY | 2024-07-30 10:34 | XMS_ITS | Encounter Summary ---
Author Organization [facility] Address [address] [place] [phone] Phone Care Team Providers Care Vault Clerk Name Role Phone Unavailable Primary Care Provider Unavailabl e Encounter Details Date Type Department Care Team (Late st Contact Info) Description 10/27/2016 Conversion Encounter [facility] - [address] [address] Social History Tobacco Use Types Packs/Day Years Used Date Smoking Tobacco: Never Assessed Sex and Gender Information Value Date Recorded Sex Assigned at Not on file Legal Sex Male 4:16 PM EDT Gender Identity Not on file Sexual Orientation Not on file documented as of this encounter Plan of Treatment Not on file documented as of this encounter Visit Diagnoses Not on filedocumented in this encounter
== END 2024-07-30 10:20 | disposition home or self-care (01) ==
LOC: HO.HCS 09:37
PROVIDERS: PCP Internal Medicine; Visit Provider Internal Medicine Cardiovascular Disease
DX: I10 Essential (primary) hypertension (principal); E78.5 Hyperlipidemia, unspecified
CPT/HCPCS: 93010; 99214

== ENCOUNTER → 2024-07-30 09:36 | Outpatient (BNVA) | payer BC, SELFPAY | PROVIDERS: PCP Internal Medicine; Visit Provider Internal Medicine Cardiovascular Disease | DX: I10 Essential (primary) hypertension (principal) | CPT/HCPCS: 93005 ==

== ENCOUNTER 2025-02-11 14:53 | Outpatient (AMB) | payer BC, SELFPAY ==
[2025-02-11 14:54] VITALS: BP 132/84; PULSE 75; O2SAT 98; BMI 29.5
--- NOTE | 2025-02-11 14:54 | A.OFFVIS_ITS ---
Vital Signs 02/11/25 14:54 Height 5 ft 9 in Weight 199 lb 8 oz BMI 29.5 BP 132/84 Blood Pressure Location Rt brachial Position Sitting Pulse 75 Pulse Source Pulse Oximeter Pulse Oximetry (%) 98 Oxygen Delivery Method Room Air Intake Visit Reasons: 1yr F/U (LVM) Intake Note: Follow up Obstructive sleep apnea Strategic Planning Director Required: No Accompanied by: Self / Same As Patient Allergies No Known Allergies Allergy (Verified 02/11/25 14:54) HPI Comments Details: 40 year old male with history of HTN presents for a one year follow up of his JEFF. He says since he has been using his CPAP his quality of sleep has improved and w akes up without headaches. He uses his CPAP 4-8 hours per night 77/90 days with a 86% compliance, over 4 hours most nights and AHI 1:1. he wears a mouthguard for bruxism He works over 12 hours per day and noticed his sleep used to be fragmented, and used to snore heavily. He doesn't use any drugs, drinks alcohol occasionally, doesn't smoke, denies headaches, nausea, vomiting, nor any vision changes. He cleans the mask once a week and changes the filter as needed. [facility] Medical History Uncontrolled hypertension HTN (hypertension) Surgical History H/O removal of cyst Family History Father HTN (hypertension) Mother HTN (hypertension) Maternal Grandfather CAD (coronary artery disease) Maternal Grandmother CAD (coronary artery disease) Social History Alcohol intake: current Alcohol intake frequency: a few times a month Patient Tobacco Use Status: Never used Tobacco Review of Systems ENT Reports Normal hearing present Neuro Reports Normal hearing present Physical Exam Vital Signs: Last Vital Signs Pulse 75 02/11/25 14:54 BP 132/84 02/11/25 14:54 Pulse Ox 98 02/11/25 14:54 Oxygen Delivery Method Room Air 02/11/25 14:54 BMI result Body Mass Index 29.5 Const General: cooperative and comfortable Nutritional Appearance: average body habitus Orientation/consciousness: patient oriented x3 Limitations: no limitations Eyes Pupils: Equal, round and reactive pupils present and Pupils normal by confrontation Neck Neck: Yes full ROM, Yes trachea midline and Yes supple Resp Effort & Inspection: normal respiratory effort and able to speak in complete sentences Neuro General: patient oriented x3, CN's II-XI intact bilaterally and deep tendon reflexes 2+ bilaterally Cranial nerves: Yes CN's II-XII intact bilaterally, Yes Equal, round and reactive pupils present, Yes Normal accommodation reflex present, Yes Bilaterally intact EOM present, Yes Midline tongue present, Yes Normal hearing present and Yes Ability to bilaterally elevate shoulders present Cognition (Neuro): normal cognition Gait exam (Neuro): Normal gait present Motor exam (neuro): 5/5 motor strength present throughout Coordination: [id number] test normal Assessment & Plan Assessment & Plan (1) Obstructive sleep apnea: Code(s): G47.33 - Obstructive sleep apnea (adult) (pediatric) Category: Medical Plan: JEFF: Continue on CPAP, use good sleep hygiene practices compliance stressed Coding Level of Care Code Est Pt Level 4 (51071) Diagnoses Obstructive sleep apnea G47.33
--- OUTSIDE RECORDS SUMMARY | 2025-02-11 16:44 | XMS_ITS | Clinical Summary ---
Author Organization [facility] Address [address] [place] [phone] Phone Care Team Providers Care Air Battle Manager Name Role Phone Unavailable Primary Care Provider [...] 10/26/2002 10/25/2002, 10/25/1993, 10/11/1988, Additional history exists HPV Vaccines (1 - 3-dose SCDM series) 01/28/2011 Influenza Vaccines (#1) 2024 COVID-19 Vaccine (2024- season) 2024 HIB Vaccines Completed 11/11/1986 IPV Vaccines Completed 10/11/1988, 10/0 03/1985, 1984, Additional history exists MMR Vaccines Completed 08/16/1996, 09/11, 06/11/1985 Hepatitis B Vaccines Completed 03/14/1997, 11/06/1996, 08/16/1996 Hepatitis A Vaccines Aged Out No long [...]
--- OUTSIDE RECORDS SUMMARY | 2025-02-11 16:44 | XMS_ITS ---
Author Name [facility] Organization Unknown Care Team Organization Name Specialty Phone Email Start Date End Da te [facility] SALOMÓN ARREDONDO Primary Care 01/18/2022 4
--- OUTSIDE RECORDS SUMMARY | 2025-02-11 16:44 | XMS_ITS | Clinical Summary ---
Author Organization [facility] [address] [facility] Address [address] [place] [address] Phone Care Team Providers Care Senior Application Programmer Name Role Phone Jovany Womack MD Primary Care Provider [phone] Allergies No known active allergies Medications amLODIPine (NORVASC) 5 mg tablet Take 1 Tablet by mouth daily. 2 Active hydroCHLOROthia zide (HYDRODIURIL) 25 mg tablet Take 1 Tablet by mouth daily. 2 Active metoprolol succinate (Kapspargo Sprinkle) 25 mg capsule,sprinkl e,ER 24hr Take 1 Tablet by mouth daily. Active omega-3 acid ethyl esters (LOVAZA) 1 gram capsule Take 2 Capsules by mouth 2 times daily. Active rosuvastatin (CRESTOR) 10 mg tablet Take 1 Tablet by mouth daily. Active valsartan (DIOVAN) 80 mg tablet Take 2 Tablets by mouth daily. 2 Active blood-glucose sensor (FreeStyle Giancarlo 3 Plus Sensor) device 1 EA every 14 (fourteen) days. Box = Kit = EA 2 each 5 5 Active valsartan (DIOVAN) 160 mg tablet Take 1 tablet (160 mg total) by mouth 2 (two) times a day. 5 Active doxycycline (VIBRAMYCIN) 100 mg capsule Take 2 capsules (200 mg total) by mouth 1 (one) time for 1 dose. Take with at least 8 ounces (large glass) of water, do not lie down for 30 minutes after. Administer 2 hours before or after multivitamins, antacids, or other products containing polyvalent cations (i.e., calcium, iron, magnesium, selenium, zinc). 2 each 5 01/21/20 25 Active Problems Problem Noted Date Diagnosed Date Diabetes mellitus type 2, di et-controlled ([facility] V24, [facility] V28) 07/22/2024 Gout of foot 07/29/2020 Hypertension 02/16/2018 Fatty liver 11/23/2013 Hyperlipidemia 11/23/2013 Epistaxis 08/13/2010 Overview (02/26/2024): Recurrent, was told by ENT due to weak membranes and no further rx recommended Encounters Date Type Department Care Team Description 01/06/2025 1:15 PM EDT Office Visit Adult Medicine [address] [phone] Jovany Womack MD Diabetes mellitus type 2, diet-controlled ([facility] V24, [facility] V28) (Primary Dx); Pure hypercholesterolemia; Primary hypertension; Elevated LFTs from Last 3 Months Immunizations Immunization Administration Dates Next Due Influenza trivalent, 0.5mL, [...] care for your loved ones. For example, maternal child nurse or elderly care for an older adult? [...] Date Recorded What is your living situation? Unrecognized valu e 07/16/2024 Sex and Gender Information Value Date Recorded Sex Assigned at Male 12/30/2024 8:40 PM EDT Legal Sex Male 4:38 PM EST Gender Identity Male 12/30/2024 8:40 PM EDT Sexual Orientation Straight 12/30/2024 8: 40 PM EDT Obstetrics History Last Filed Vital Signs Vital Sign Reading Time Taken Comments Blood Pressure 118/72 01/06/2025 1:11 PM EDT Pulse 62 01/06/2025 1:11 PM EDT Temperature 36.6 C (97.8 F) 01/06/2025 1:11 PM EDT Respiratory Rate 14 01/06/2025 1:11 PM EDT Oxygen Saturation 98% 01/06/2025 1:11 PM EDT Inhaled Oxygen Concentration - - Weight 89.4 kg (197 lb) 01/06/2025 1:11 PM EDT Height 175.3 cm (5' 9 ) 01/06/2025 1:11 PM EDT Body Mass Index 29.09 01/06/2025 1:11 PM EDT Plan of Treatment Upcoming Encounters Date Type Department Care Team (Late st Contact Info) Description 04/14/2025 9:30 AM EST Office Visit Adult Medicine [address] [phone] Jovany Womack MD [address] [place] [address] 07/04/2025 3:45 PM EDT Office Visit Adult Medicine [facility] [address] [place] [phone] Jovany Womack MD [address] [place] [phone] Health Maintenance Due Date Last Done Comments Diabetes: Annual Foot Exam 01/28/1994 Diabetes: Annual Retina Eye Exam 01/28/1994 Pneumococcal Vaccine: Pediatrics (0 to 5 Years) and At-Risk Patients (6 to 49 Years) (1 of 2 - PCV) 01/28/2003 HPV Vaccines (1 - 3-dose SCDM series) 01/28/2011 HIV Screening 02/19/2022 Hepatitis C Screening 02/19/2022 COVID-19 Vaccine ( season) 2024 03/16/2021, 07/22/2020, 06/23/2020 Influenza Vaccine (#1) 2024 , 12/15/2019, 12/29/2016, Additional history exists Diabetes: Blood Sugar Control Test (HGBA1C) 07/04/2025 01/03/2025, 07/17/2024, 10/17/2022 Social Influencers of Health Screening 07/16/2025 07/16/2024 Diabetes: Annual Urine Albumin-Creatinine Ratio (uACR) 01/03/2026 01/03/2025, 12/26/2016 Diabetes: Annual GFR (Glomerular Filtration Rate) 01/03/2026 01/03/2025, 07/17/2024, 03/04/2024, Additional history exists Hypertension/CHF/CAD Annual BMP Blood Test 01/03/2026 01/03/2025, 07/17/2024, 03/04/2024, Additional history exists DTaP,Tdap,and Td Vaccines (9 - Td or Tdap) 12/06/2028 12/06/2018, 10/15/2008, 10/25/2002, Additional history exists Cholesterol Screening (Lipid Panel) 01/03/2030 01/03/2025, 07/17/2024, 03/04/2024, Additional history exists RSV Immunization Adult Patients (1 - 1-dose 75+ series) 01/28/2059 HIB Vaccines Completed 11/11/1986 IPV Vaccines Completed 10/11/1988, 100 03/1985, 1984, Additional history exists MMR Vaccines Completed 08/16/1996, 09/11, 06/11/1985 Hepatitis B Vaccines Completed 03/14/1997, 11/06/1996, 08/16/1996 Meningococcal ACWY Vaccine Aged Out 10/25/2002 N o longer eligible based on patient's age to complete this topic Depression Screening Completed 07/16/2024 Hepatitis A Vaccines Aged Out No long [...] Procedure Name Priority Date/Time Associated Diagnosis Comments VA PROTEIN ELECTROPHORETIC FRACTIONATION & QUANTITATION SERUM Routine 01/03/2025 11:27 AM EDT Elevated serum protein level PROTEIN, TOTAL Routine 01/03/2025 11:27 AM EDT Elevated serum protein level PROTEIN ELECTROPHORESIS, SERUM Routine 01/03/2025 11:27 AM EDT Elevated serum protein level HEMOGLOBIN A1C Routine 01/03/2025 11:27 AM EDT Diabetes mellitus type 2, diet-controlled (CMS/HCC V24, CMS/HCC V28) LIPID PANEL WITH REFLEX TO DIRECT LDL Routine 01/03/2025 11:27 AM EDT Diabetes mellitus type 2, diet-controlled (CMS/HCC V24, CMS/HCC V28) Pure hypercholesterolemia COMPREHENSIVE METABOLIC PANEL Routine 01/03/2025 11:27 AM EDT Diabetes mellitus type 2, diet-controlled (CMS/HCC V24, CMS/HCC V28) Primary hypertension Encounter for long-term (current) use of medications MICROALBUMIN CREATININE URINE RATIO Routine 01/03/2025 11:27 AM EDT Diabetes mellitus type 2, diet-controlled ([facility] V24, [facility] V28) from Last 3 Months Results * PATHOLOGIST REVIEW PROTEIN ELECTROPHORESIS (01/03/2025 11:27 AM EDT) Pathologist Interpretation 01/06/2025 5:07 PM EDT [facility] Blood Venous blood specimen / Unknown Venipuncture / Unknown 01/03/2025 11:27 AM EDT 01/03/2025 11:27 AM EDT us Jovany Womack MD LAB BLOOD ORDERABLES Final Resu lt [facility] [address] [place] [address], * (ABNORMAL) Lipid panel with reflex to direct LDL (01/03/2025 11:27 AM EDT) Cholesterol 104 0 - 200 mg/dL LAB CHEMISTRY METHOD 01/03/2025 4:19 PM EDT [facility] Triglycerides 102 0 - 150 mg/dL LAB CHEMISTRY METHOD 01/03/2025 4:19 PM EDT [facility] HDL 32(L) >=40 mg/dL LAB CHEMISTRY METHOD 01/03/2025 4:19 PM EDT [facility] LDL Calculated 52 0 - 100 mg/dL LAB CHEMISTRY METHOD 01/03/2025 4:19 PM EDT [facility] Comment:Estimated LDL Calcul ated using equation: Total cholesterol - HDL cholesterol - (Triglycerides/5) VLDL Cholesterol Quan 20.4 mg/dL LAB CHEMISTRY METHOD 01/03/2025 4:19 PM EDT [facility] Non HDL Chol. (LDL+VLDL) 72 <145 mg/dL LAB CHEMISTRY METHOD 01/03/2025 4:19 PM EDT [facility] Chol/HDL Ratio 3.3 0.0 - 4.4 LAB CHEMISTRY METHOD 01/03/2025 4:19 PM EDT [facility] Blood Venous blood specimen / Unknown Venipuncture / Unknown 01/03/2025 11:27 AM EDT 01/03/2025 11:27 AM EDT us Jovany Womack MD LAB BLOOD ORDERABLES Final Resu lt [facility] [address] [place] [address], [place] [phone] * (ABNORMAL) Microalbumin creatinine urine ratio (01/03/2025 11:27 AM EDT) Creatinine, Urine 20.0 mg/dL LAB CHEMISTRY METHOD 01/03/2025 4:20 PM EDT [facility] Microalb, Ur 8.0 0.0 - 29.0 mg/L LAB CHEMISTRY METHOD 01/03/2025 4:20 PM EDT [facility] Microalb/Creat Ratio 40(H) <30 mg/g creat LAB CHEMISTRY METHOD 01/03/2025 4:20 PM EDT [facility] Urine Urine specimen obtained by clean catch procedure / Unknown Non-blood Collection / Unknown 01/03/2025 11:27 AM EDT 01/03/2025 11:27 AM EDT us Jovany Womack MD LAB URINE ORDERABLES Final Resu lt Performing Organization Address City/[facility]/ZIP Co de Phone Number [facility] [address] [place] [address], [place] [phone] * (ABNORMAL) Protein electrophoresis, serum (01/03/2025 11:27 AM EDT) Total Protein 8.3(H) 6.0 - 8.0 g/dL LAB CHEMISTRY METHOD 01/06/2025 5:07 PM EDT [facility] Albumin, Serum 4.8(H) 2.9 - 4.1 g/dL LAB CHEMISTRY METHOD 01/06/2025 5:07 PM EDT [facility] Alpha 1 Globulin (g/dL) 0.2 0.1 - 0.5 g/dL LAB CHEMISTRY METHOD 01/06/2025 5:07 PM EDT [facility] Alpha 2 Globulin (g/dL) 0.9 0.7 - 1.5 g/dL LAB CHEMISTRY METHOD 01/06/2025 5:07 PM EDT [facility] Beta (g/dL) 1.0 0.7 - 1.5 g/dL LAB CHEMISTRY METHOD 01/06/2025 5:07 PM EDT [facility] Gamma Globulin (g/dL) 1.6 0.7 - 1.9 g/dL LAB CHEMISTRY METHOD 01/06/2025 5:07 PM EDT [facility] SPEP Interpretation No M-Obdulio seen. Increased levels of albumin may be seen in acute dehydratio n. LAB CHEMISTRY METHOD 01/06/2025 5:07 PM [facility] Blood Venous blood specimen / Unknown Venipuncture / Unknown 01/03/2025 11:27 AM EDT 01/03/2025 11:27 AM EDT us Jovany Womack MD LAB BLOOD ORDERABLES Final Resu lt [facility] [address] [place] [address], * (ABNORMAL) Protein, total (01/03/2025 11:27 AM EDT) Total Protein 8.3(H) 6.0 - 8.0 g/dL LAB CHEMISTRY METHOD 01/03/2025 4:02 PM EDT [facility] Blood Venous blood specimen / Unknown Venipuncture / Unknown 01/03/2025 11:27 AM EDT 01/03/2025 11:27 AM EDT us Jovany Womack MD LAB BLOOD ORDERABLES Final Resu lt Performing Organization Address [facility]/ZIP Co de Phone Number [facility] [address] [place] [address], [place] [phone] * Hemoglobin A1c (01/03/2025 11:27 AM EDT) Hemoglobin A1C 6.0 <6.5 % LAB CHEMISTRY METHOD 01/03/2025 9:00 PM EDT [facility] Mean Bld Glu Estim. 126 mg/dL LAB CHEMISTRY METHOD 01/03/2025 9:00 PM EDT [facility] Blood Venous blood specimen / Unknown Venipuncture / Unknown 01/03/2025 11:27 AM EDT 01/03/2025 11:27 AM EDT us Jovany Womack MD LAB BLOOD ORDERABLES Final Resu lt Performing Organization Address [facility]/ZIP Co de Phone Number [facility] [address] [place] [address], [place] [phone] * (ABNORMAL) Comprehensive metabolic panel (01/03/2025 11:27 AM EDT) Sodium 141 133 - 145 mmol/L LAB CHEMISTRY METHOD 01/03/2025 4:19 PM EDT [facility] Potassium 3.8 3.5 - 5.5 mmol/L LAB CHEMISTRY METHOD 01/03/2025 4:19 PM EDT [facility] Chloride 105 96 - 110 mmol/L LAB CHEMISTRY METHOD 01/03/2025 4:19 PM EDT [facility] CO2 29 21 - 32 mmol/L LAB CHEMISTRY METHOD 01/03/2025 4:19 PM [facility] Anion Gap 7 3 - 11 LAB CHEMISTRY METHOD 01/03/2025 4:19 PM [facility] Glucose 101(H) 70 - 100 mg/dL LAB CHEMISTRY METHOD 01/03/2025 4:19 PM [facility] BUN 12 5 - 25 mg/dL LAB CHEMISTRY METHOD 01/03/2025 4:19 PM [facility] Creatinine 0.93 0.70 - 1.30 mg/dL LAB CHEMISTRY METHOD 01/03/2025 4:19 PM [facility] eGFR 106 >=60 mL/min/1. 73m2 LAB CHEMISTRY METHOD 01/03/2025 4:19 PM [facility] Comment:Calculation based on the Chronic Kidney Disease Epidemiology Collaboration (CKD-EPI) equation refit without adjustment for race. BUN/Creatinine Ratio 12.9 LAB CHEMISTRY METHOD 01/03/2025 4:19 PM [facility] Calcium 9.8 8.5 - 10.5 mg/dL LAB CHEMISTRY METHOD 01/03/2025 4:19 PM [facility] AST (SGOT) 40 10 - 42 unit/L LAB CHEMISTRY METHOD 01/03/2025 4:19 PM [facility] ALT (SGPT) 81(H) 10 - 60 unit/L LAB CHEMISTRY METHOD 01/03/2025 4:19 PM [facility] Alkaline Phosphatase 89 42 - 121 unit/L LAB CHEMISTRY METHOD 01/03/2025 4:19 PM [facility] Total Protein 8.4(H) 6.0 - 8.0 g/dL LAB CHEMISTRY METHOD 01/03/2025 4:19 PM [facility] Albumin 4.9 3.2 - 5.0 g/dL LAB CHEMISTRY METHOD 01/03/2025 4:19 PM [facility] Total Bilirubin 1.1 0.0 - 1.4 mg/dL LAB CHEMISTRY METHOD 01/03/2025 4:19 PM EDT [facility] Blood Venous blood specimen / Unknown Venipuncture / Unknown 01/03/2025 11:27 AM EDT 01/03/2025 11:27 AM EDT us Jovany Womack MD LAB BLOOD ORDERABLES Final Resu lt [facility] [address] [place] [address], from Last 3 Months Insurance [facility] Care Teams Senior Application Programmer Relationship Specialty Start Date End Date Jovany Womack MD [address] [place] [address] PCP - General Internal Medicine 01/09/24
--- OUTSIDE RECORDS SUMMARY | 2025-02-11 16:44 | XMS_ITS | Encounter Summary ---
Author Organization [facility] Address [address] [place] [phone] Phone Care Team Providers Care Communications Supervisor Name Role Phone Unavailable Primary Care Provider Unavailabl e Encounter Details Date Type Department Care Team (Late st Contact Info) Description 10/27/2016 Conversion Encounter [facility] - [address] [phone] Social History Tobacco Use Types Packs/Day Years [...]
== END 2025-02-11 15:10 | disposition home or self-care (01) ==
LOC: HO.HSMS 14:53
PROVIDERS: PCP Internal Medicine; Visit Provider Psychiatry & Neurology Neurology
DX: G47.33 Obstructive sleep apnea (adult) (pediatric) (principal)
CPT/HCPCS: 99214